=== PATIENT | female | born 1965 ===

== ENCOUNTER 2020-07-07 10:47 | Outpatient (REF) | payer OTHER, SELFPAY | END 2020-07-07 10:48 | disposition home or self-care (01) | LOC: HO.LAB 10:47 | PROVIDERS: Referring Provider Internal Medicine; Visit Provider Internal Medicine | DX: Z20.828 Contact with and (suspected) exposure to other viral communicable diseases (principal); B20 Human immunodeficiency virus [HIV] disease; R79.89 Other specified abnormal findings of blood chemistry | CPT/HCPCS: 87635; 99212 ==

== ENCOUNTER → 2020-12-29 10:41 | Outpatient (BNVA) | payer OTHER, SELFPAY | PROVIDERS: Visit Provider Internal Medicine | DX: B20 Human immunodeficiency virus [HIV] disease (principal) | CPT/HCPCS: 99212 ==

== ENCOUNTER → 2021-06-30 09:58 | Outpatient (BNVA) | payer OTHER, SELFPAY | PROVIDERS: Visit Provider Internal Medicine | DX: B20 Human immunodeficiency virus [HIV] disease (principal) | CPT/HCPCS: 99212 ==

== ENCOUNTER 2022-02-16 12:55 | Outpatient (REF) | payer OTHER, SELFPAY ==
[2022-02-16 13:39] LABS: MANUAL DIFF FLAG NO
[2022-02-16 13:42] LABS: White Blood Count 5.3 X10*3/uL (4.8-10.8)
[2022-02-16 13:43] LABS: Basophils Percent Auto 0.4 % (0-2); Eosinophils Absolute Auto 0.1 X10*3/uL (0.0-0.4); Eosinophils Percent Auto 1.5 % (0-4); Hematocrit 41.1 % (37.0-47.0); Hemoglobin 13.7 g/dl (12.0-16.0); Imm Gran Abs Auto 0.01 X10*3/uL (0.00-0.03); Imm Gran Pct Auto 0.2 % (0.0-0.4); Lymphocytes Absolute Auto 2.1 X10*3/uL (1.2-4.9); Lymphocytes Percent Auto 39.9 % (20-40); Mean Corpuscular HGB Conc 33.3 g/dl (31.0-35.0); Mean Corpuscular Hemoglobin 28.4 pg (27.0-33.0); Mean Corpuscular Volume 85.3 fL (80.0-98.0); Mean Platelet Volume 10.1 fL (9.4-12.3); Monocytes Absolute Auto 0.4 X10*3/uL (0.1-1.2); Neutrophils Absolute Auto 2.7 x10*3/uL (2.0-8.3); Platelet Count 189 X10*3/uL (160-400); Red Blood Count 4.82 X10*6/uL (4.20-5.50); Red Cell Distribution Width 13.5 % (11.0-16.0)
[2022-02-16 14:05] LABS: Alanine Aminotransferase 14 U/L (0-31); Albumin Level 4.3 g/dL (3.5-5.0); Alkaline Phosphatase 50 U/L (39-117); Anion Gap 13 (12-20); Aspartate Amino Transferase 17 U/L (5-31); Bilirubin Direct 0.2 mg/dL (0.0-0.5); Bilirubin Total 0.5 mg/dL (0.0-1.0); Blood Urea Nitrogen 16 mg/dL (9-16); Calcium 10.2 mg/dL (8.4-10.2); Carbon Dioxide 25 mmol/L (22-29); Chloride 107 mmol/L (96-108); Estimated Glomerular Filt Rate 60; Glucose Random 91 mg/dL (60-115); Potassium 3.5 mmol/L (3.3-5.1); Sodium 141 mmol/L (135-145); Total Protein 7.2 g/dL (6.5-8.0)
[2022-02-18 14:55] LABS: Absolute CD3 Count 1349 cells/uL (840-3060); Absolute CD4 Count 658 cells/uL (490-1740); Absolute CD8 Count 743 cells/uL (180-1170); Absolute Lymphocytes 2242 cells/uL (850-3900); CD4 CD8 Ratio 0.89 (0.86-5.00); Percent CD3 Cells 60 % (57-85); Percent CD4 Cells 29 % (30-61); Percent CD8 Cells 33 % (12-42)
[2022-02-19 19:16] LABS: HIV RNA PCR Qn Copies <20 DETECTED copies/mL (NOT DETECTED); HIV RNA PCR Qn Log Copies <1.30 DETECTED (NOT DETECTED)
== END 2022-02-16 12:56 | disposition home or self-care (01) ==
LOC: HO.HMGCLDS 12:55
PROVIDERS: Visit Provider Internal Medicine
DX: B20 Human immunodeficiency virus [HIV] disease (principal)
CPT/HCPCS: 36415; 80048; 80076; 85025; 86359; 86360; 87536

== ENCOUNTER → 2022-03-02 10:44 | Outpatient (BNVA) | payer OTHER, SELFPAY | PROVIDERS: Visit Provider Internal Medicine | DX: B20 Human immunodeficiency virus [HIV] disease (principal) | CPT/HCPCS: 99212 ==

== ENCOUNTER 2022-08-21 12:26 | Outpatient (REF) | payer OTHER, SELFPAY ==
[2022-08-23 15:04] LABS: Absolute CD3 Count 851 cells/uL (840-3060); Absolute CD4 Count 416 cells/uL (490-1740); Absolute CD8 Count 472 cells/uL (180-1170); Absolute Lymphocytes 1560 cells/uL (850-3900); CD4 CD8 Ratio 0.88 (0.86-5.00); Percent CD3 Cells 55 % (57-85); Percent CD4 Cells 27 % (30-61); Percent CD8 Cells 30 % (12-42)
[2022-08-24 13:58] LABS: HIV RNA PCR Qn Copies NOT DETECTED copies/mL (NOT DETECTED); HIV RNA PCR Qn Log Copies NOT DETECTED (NOT DETECTED)
== END 2022-08-21 12:27 | disposition home or self-care (01) ==
LOC: HO.HMGCLDS 12:26
PROVIDERS: PCP Internal Medicine; Visit Provider Internal Medicine
DX: B20 Human immunodeficiency virus [HIV] disease (principal)
CPT/HCPCS: 36415; 86359; 86360; 87536

== ENCOUNTER → 2022-09-01 11:09 | Outpatient (BNVA) | payer OTHER, SELFPAY | PROVIDERS: PCP Internal Medicine; Visit Provider Internal Medicine | DX: B20 Human immunodeficiency virus [HIV] disease (principal); Z79.899 Other long term (current) drug therapy | CPT/HCPCS: 99212 ==

== ENCOUNTER 2023-02-17 10:41 | Outpatient (REF) | payer OTHER, SELFPAY ==
[2023-02-17 14:31] LABS: MANUAL DIFF FLAG NO
[2023-02-17 14:43] LABS: Basophils Percent Auto 0.5 % (0-2); Eosinophils Absolute Auto 0.1 X10*3/uL (0.0-0.4); Eosinophils Percent Auto 1.8 % (0-4); Hematocrit 42.6 % (37.0-47.0); Hemoglobin 13.9 g/dl (12.0-16.0); Imm Gran Abs Auto 0.01 X10*3/uL (0.00-0.03); Imm Gran Pct Auto 0.3 % (0.0-0.4); Lymphocytes Absolute Auto 1.8 X10*3/uL (1.2-4.9); Lymphocytes Percent Auto 45.6 % (20-40); Mean Corpuscular HGB Conc 32.6 g/dl (31.0-35.0); Mean Corpuscular Hemoglobin 28.1 pg (27.0-33.0); Mean Corpuscular Volume 86.1 fL (80.0-98.0); Mean Platelet Volume 10.5 fL (9.4-12.3); Monocytes Absolute Auto 0.3 X10*3/uL (0.1-1.2); Monocytes Percent Auto 7.6 % (2-11); Neutrophils Absolute Auto 1.8 x10*3/uL (2.0-8.3); Neutrophils Percent Auto 44.2 % (45-73); Platelet Count 183 X10*3/uL (160-400); Red Blood Count 4.95 X10*6/uL (4.20-5.50); Red Cell Distribution Width 13.8 % (11.0-16.0)
[2023-02-17 15:02] LABS: Alanine Aminotransferase 13 U/L (0-31); Albumin Level 4.2 g/dL (3.5-5.0); Alkaline Phosphatase 54 U/L (39-117); Anion Gap 13 (12-20); Aspartate Amino Transferase 19 U/L (5-31); Bilirubin Direct 0.2 mg/dL (0.0-0.5); Bilirubin Total 0.8 mg/dL (0.0-1.0); Blood Urea Nitrogen 14 mg/dL (9-16); Calcium 9.9 mg/dL (8.4-10.2); Carbon Dioxide 25 mmol/L (22-29); Chloride 107 mmol/L (96-108); Estimated Glomerular Filt Rate > 60; Glucose Random 79 mg/dL (60-115); Potassium 4.1 mmol/L (3.3-5.1); Sodium 141 mmol/L (135-145); Total Protein 7.2 g/dL (6.5-8.0)
[2023-02-19 22:04] LABS: HIV RNA PCR Qn Copies <20 DETECTED copies/mL (NOT DETECTED); HIV RNA PCR Qn Log Copies <1.30 DETECTED (NOT DETECTED)
[2023-02-21 11:44] LABS: Absolute CD3 Count 1275 cells/uL (840-3060); Absolute CD4 Count 649 cells/uL (490-1740); Absolute CD8 Count 659 cells/uL (180-1170); Absolute Lymphocytes 2033 cells/uL (850-3900); CD4 CD8 Ratio 0.98 (0.86-5.00); Percent CD3 Cells 63 % (57-85); Percent CD4 Cells 32 % (30-61); Percent CD8 Cells 32 % (12-42)
== END 2023-02-17 10:42 | disposition home or self-care (01) ==
LOC: HO.HMGCLDS 10:41
PROVIDERS: Visit Provider Internal Medicine
DX: B20 Human immunodeficiency virus [HIV] disease (principal)
CPT/HCPCS: 36415; 80048; 80076; 85025; 86359; 86360; 87536

== ENCOUNTER → 2023-03-02 10:54 | Outpatient (BNVA) | payer OTHER, SELFPAY | PROVIDERS: PCP Internal Medicine; Visit Provider Internal Medicine | DX: B20 Human immunodeficiency virus [HIV] disease (principal) | CPT/HCPCS: 99212 ==

== ENCOUNTER 2023-08-20 11:56 | Outpatient (REF) | payer OTHER, SELFPAY ==
[2023-08-20 13:39] LABS: MANUAL DIFF FLAG NO
[2023-08-20 13:47] LABS: Basophils Percent Auto 0.7 % (0-2); Eosinophils Absolute Auto 0.1 X10*3/uL (0.0-0.4); Eosinophils Percent Auto 2.4 % (0-4); Hematocrit 42.9 % (37.0-47.0); Hemoglobin 14.2 g/dl (12.0-16.0); Imm Gran Abs Auto 0.01 X10*3/uL (0.00-0.03); Imm Gran Pct Auto 0.2 % (0.0-0.4); Lymphocytes Absolute Auto 1.7 X10*3/uL (1.2-4.9); Lymphocytes Percent Auto 39.8 % (20-40); Mean Corpuscular HGB Conc 33.1 g/dl (31.0-35.0); Mean Corpuscular Volume 87.7 fL (80.0-98.0); Mean Platelet Volume 10.1 fL (9.4-12.3); Monocytes Absolute Auto 0.3 X10*3/uL (0.1-1.2); Monocytes Percent Auto 7.7 % (2-11); Neutrophils Percent Auto 49.2 % (45-73); Platelet Count 177 X10*3/uL (160-400); Red Blood Count 4.89 X10*6/uL (4.20-5.50); Red Cell Distribution Width 13.3 % (11.0-16.0); White Blood Count 4.2 X10*3/uL (4.8-10.8)
[2023-08-20 13:53] LABS: Alanine Aminotransferase 12 U/L (0-31); Albumin Level 4.2 g/dL (3.5-5.0); Alkaline Phosphatase 50 U/L (39-117); Anion Gap 13 (12-20); Aspartate Amino Transferase 19 U/L (5-31); Bilirubin Direct 0.3 mg/dL (0.0-0.5); Bilirubin Total 0.7 mg/dL (0.0-1.0); Blood Urea Nitrogen 16 mg/dL (9-16); Calcium 10.2 mg/dL (8.4-10.2); Carbon Dioxide 24 mmol/L (22-29); Chloride 110 mmol/L (96-108); Estimated Glomerular Filt Rate 57; Glucose Random 89 mg/dL (60-115); Potassium 3.9 mmol/L (3.3-5.1); Sodium 143 mmol/L (135-145); Total Protein 7.3 g/dL (6.5-8.0)
[2023-08-21 09:15] LABS: ~HepC Num1 0.09 S/CO (0.00-0.79); ~Hepatitis C Antibody Nonreactive (Nonreactive)
[2023-08-22 07:13] LABS: Absolute CD3 Count 1112 cells/uL (840-3060); Absolute CD4 Count 565 cells/uL (490-1740); Absolute CD8 Count 599 cells/uL (180-1170); Absolute Lymphocytes 1720 cells/uL (850-3900); CD4 CD8 Ratio 0.94 (0.86-5.00); Percent CD3 Cells 65 % (57-85); Percent CD4 Cells 33 % (30-61); Percent CD8 Cells 35 % (12-42)
[2023-08-24 12:04] LABS: HIV RNA PCR Qn Copies 195 copies/mL (NOT DETECTED); HIV RNA PCR Qn Log Copies 2.29 (NOT DETECTED)
== END 2023-08-20 11:57 | disposition home or self-care (01) ==
LOC: HO.HMGCLDS 11:56
PROVIDERS: PCP Internal Medicine; Visit Provider Internal Medicine
DX: B20 Human immunodeficiency virus [HIV] disease (principal)
CPT/HCPCS: 36415; 80048; 80076; 85025; 86359; 86360; 86803; 87536

== ENCOUNTER 2023-09-05 11:10 | Outpatient (AMB) | payer OTHER, SELFPAY ==
[2023-09-05 11:25] VITALS: BP 127/69; PULSE 72; TEMP 37; O2SAT 97; BMI 32.4
--- NOTE | 2023-09-05 11:25 | A.OFFVIS_ITS ---
Intake Vital Signs 09/05/23 11:25 Height 4 ft 10 in Weight 155 lb BMI 32.4 BP 127/69 Blood Pressure Location Lt brachial Position Sitting Pulse 72 Pulse Source Pulse Oximeter Temp 98.6 F Temp Source Oral Pulse Oximetry (%) 97 Oxygen Delivery Method Room Air Intake Visit Reasons: F/U 6 mth lab Allergies doxycycline Allergy (Unknown, Verified 09/05/23 11:26) itchiness minocycline [MINOCYCLINE] Allergy (Unknown, Verified 09/05/23 11:26) HIVES Sulfa (Sulfonamide Antibiotics) Allergy (Unknown, Verified 09/05/23 11:26) hives sulfamethoxazole [From BACTRIM] Allergy (Unknown, Verified 09/05/23 11:26) HIVES trimethoprim [From BACTRIM] Allergy (Unknown, Verified 09/05/23 11:) HIVES BACTRIM Allergy (Unknown, Uncoded 03/02/23 11:13) HIVES DOXYCYCLINE Allergy (Unknown, Uncoded 03/02/23 11:13) ITCGINESS HPI F/U 6 mth lab HPI Details She reports perfect adherence to Odefsey. She has CD4 count 565 and viral load 195 on 08/20. She has no complaints. Recheck within week at [facility] shows viral load only 23. COUNTS INCLUDE 234 BEDS AT THE [facility] Medical History Blood creatinine increased compared with prior measurement HIV (human immunodeficiency virus infection) Family History Mother HTN (hypertension) Social History Household Members: None Housing: Apartment Alcohol intake: never Patient Tobacco Use Status: Never used Tobacco Physical Exam Vital Signs: Last Vital Signs Temp 98.6 F 09/05/23 11:25 Pulse 72 09/05/23 11:25 BP 127/69 09/05/23 11:25 Pulse Ox 97 09/05/23 11:25 Oxygen Delivery Method Room Air 09/05/23 11:25 BMI result Body Mass Index 32.4 Const General: cooperative Orientation/consciousness: patient oriented x3 HEENT Head: Yes normal to inspection Mouth: Normal oral and palatal mucosa present Eyes General: appearance normal, both eyes and all related structures Pupils: Equal, round and reactive pupils present Resp Effort & Inspection: normal respiratory effort Cardio Rate: regular rate Rhythm: regular rhythm GI Palpation (GI): Soft to palpation and nontender General: Yes no CVA tenderness Back/Spine/Pelvis Back: no CVA tenderness Skin General skin exam: no rashes or lesions noted Neuro General: patient oriented x3 Cranial nerves: Yes CN's II-XII intact bilaterally and Yes Equal, round and reactive pupils present Extrem General: Yes normal to inspection Psych Appearance: grossly normal Assessment & Plan Assessment & Plan (1) HIV (human immunodeficiency virus infection): Comment: She is doing well She reports being up to date on health care maintenance. She has no concerns. She is nearly undetectable,probably blip Code(s): B20 - Human immunodeficiency virus [HIV] disease Plan: Continue Odefsey. Would check CD4 count and viral load within six months. See in six months Orders: Orders HIV-1 RNA QN PCR Expanded 09/05/23 B20 - Human immunodeficiency virus [HIV] disease Coding Level of Care Code Est Pt Level 3 (64803) Diagnoses HIV (human immunodeficiency virus infection) B20
== END 2023-09-05 13:48 | disposition home or self-care (01) ==
PROVIDERS: PCP Internal Medicine; Visit Provider Internal Medicine
DX: B20 Human immunodeficiency virus [HIV] disease (principal)
CPT/HCPCS: 99213

== ENCOUNTER → 2023-09-05 11:10 | Outpatient (BNVA) | payer OTHER, SELFPAY | PROVIDERS: PCP Internal Medicine; Visit Provider Internal Medicine | DX: B20 Human immunodeficiency virus [HIV] disease (principal) | CPT/HCPCS: 99212 ==

== ENCOUNTER 2024-02-18 13:19 | Outpatient (REF) | payer OTHER, SELFPAY ==
[2024-02-18 15:15] LABS: MANUAL DIFF FLAG NO
[2024-02-18 15:16] LABS: Basophils Percent Auto 0.7 % (0-2); Eosinophils Absolute Auto 0.2 X10*3/uL (0.0-0.4); Eosinophils Percent Auto 3.3 % (0-4); Hematocrit 42.1 % (37.0-47.0); Hemoglobin 14.1 g/dl (12.0-16.0); Lymphocytes Percent Auto 44.2 % (20-40); Mean Corpuscular HGB Conc 33.5 g/dl (31.0-35.0); Mean Corpuscular Hemoglobin 28.8 pg (27.0-33.0); Mean Corpuscular Volume 86.1 fL (80.0-98.0); Monocytes Absolute Auto 0.4 X10*3/uL (0.1-1.2); Monocytes Percent Auto 8.8 % (2-11); Neutrophils Absolute Auto 1.9 x10*3/uL (2.0-8.3); Platelet Count 181 X10*3/uL (160-400); Red Blood Count 4.89 X10*6/uL (4.20-5.50); Red Cell Distribution Width 13.7 % (11.0-16.0); White Blood Count 4.5 X10*3/uL (4.8-10.8)
[2024-02-18 15:33] LABS: Alanine Aminotransferase 11 U/L (0-31); Albumin Level 4.2 g/dL (3.5-5.0); Alkaline Phosphatase 53 U/L (39-117); Anion Gap 14 (12-20); Aspartate Amino Transferase 18 U/L (5-31); Bilirubin Direct 0.2 mg/dL (0.0-0.5); Bilirubin Total 0.7 mg/dL (0.0-1.0); Blood Urea Nitrogen 13 mg/dL (9-16); Calcium 9.8 mg/dL (8.4-10.2); Carbon Dioxide 24 mmol/L (22-29); Chloride 108 mmol/L (96-108); Estimated Glomerular Filt Rate > 60; Glucose Random 80 mg/dL (60-115); Potassium 4.1 mmol/L (3.3-5.1); Sodium 142 mmol/L (135-145); Total Protein 7.2 g/dL (6.5-8.0)
[2024-02-21 11:03] LABS: Absolute CD3 Count 1430 cells/uL (840-3060); Absolute CD4 Count 727 cells/uL (490-1740); Absolute CD8 Count 756 cells/uL (180-1170); Absolute Lymphocytes 2204 cells/uL (850-3900); CD4 CD8 Ratio 0.96 (0.86-5.00); HIV RNA PCR Qn Copies 66 copies/mL (NOT DETECTED); HIV RNA PCR Qn Log Copies 1.82 (NOT DETECTED); Percent CD3 Cells 65 % (57-85); Percent CD4 Cells 33 % (30-61); Percent CD8 Cells 34 % (12-42)
== END 2024-02-18 13:20 | disposition home or self-care (01) ==
LOC: HO.HMGCLDS 13:19
PROVIDERS: Visit Provider Internal Medicine
DX: B20 Human immunodeficiency virus [HIV] disease (principal)
CPT/HCPCS: 36415; 80048; 80076; 85025; 86359; 86360; 87536

== ENCOUNTER 2024-02-29 11:02 | Outpatient (REF) | payer OTHER, SELFPAY ==
[2024-03-02 09:38] LABS: HIV RNA PCR Qn Copies <20 DETECTED copies/mL (NOT DETECTED); HIV RNA PCR Qn Log Copies <1.30 DETECTED (NOT DETECTED)
== END 2024-02-29 11:03 | disposition home or self-care (01) ==
LOC: HO.LAB 11:02
PROVIDERS: PCP Internal Medicine; Visit Provider Internal Medicine
DX: B20 Human immunodeficiency virus [HIV] disease (principal)
CPT/HCPCS: 36415; 87536

== ENCOUNTER 2024-02-29 11:02 | Outpatient (AMB) | payer OTHER, SELFPAY ==
--- NOTE | 2024-02-29 11:12 | MHC.OFFVIS ---
Vital Signs 02/29/24 11:13 Height 4 ft 10 in Weight 156 lb BMI 32.6 BP 129/82 Blood Pressure Location Rt brachial Position Sitting Pulse 85 Pulse Source Pulse Oximeter Temp 98.9 F Temp Source Oral Pulse Oximetry (%) 100 Oxygen Delivery Method Room Air Intake Visit Reasons: hiv 6 month f/u Allergies doxycycline Allergy (Unknown, Verified 02/29/24 11:14) itchiness minocycline [MINOCYCLINE] Allergy (Unknown, Verified 02/29/24 11:14) HIVES Sulfa (Sulfonamide Antibiotics) Allergy (Unknown, Verified 02/29/24 11:14) hives sulfamethoxazole [From BACTRIM] Allergy (Unknown, Verified 02/29/24 11:14) HIVES trimethoprim [From BACTRIM] Allergy (Unknown, Verified 02/29/24 11:14) HIVES BACTRIM Allergy (Unknown, Uncoded 02/29/24 11:14) HIVES DOXYCYCLINE Allergy (Unknown, Uncoded 02/29/24 11:14) ITCGINESS [facility] Medical History Blood creatinine increased compared with prior measurement HIV (human immunodeficiency virus infection) Family History Mother HTN (hypertension) Social History Household Members: None Housing: Apartment Alcohol intake: never Patient Tobacco Use Status: Never used Tobacco Physical Exam Vital Signs: Last Vital Signs Temp 98.9 F 02/29/24 11:13 Pulse 85 02/29/24 11:13 BP 129/82 02/29/24 11:13 Pulse Ox 100 02/29/24 11:13 Oxygen Delivery Method Room Air 02/29/24 11:13 BMI result Body Mass Index 32.6 Assessment & Plan Assessment & Plan (1) HIV (human immunodeficiency virus infection): Comment: She is doing well She reports being up to date on health care maintenance. She has no concerns. She is nearly undetectable,probably blip Code(s): B20 - Human immunodeficiency virus [HIV] disease Category: Medical Plan: N/A Orders: Orders HIV 1 Resistance Proviral DNA 02/29/24 B20 - Human immunodeficiency virus [HIV] disease Coding Level of Care Code Est Pt Level 3 (98608) Diagnoses HIV (human immunodeficiency virus infection) B20
[2024-02-29 11:13] VITALS: BP 129/82; PULSE 85; TEMP 37.2; O2SAT 100; BMI 32.6
== END 2024-02-29 11:57 | disposition home or self-care (01) ==
PROVIDERS: PCP Internal Medicine; Visit Provider Internal Medicine
DX: B20 Human immunodeficiency virus [HIV] disease (principal)
CPT/HCPCS: 99499

== ENCOUNTER 2024-08-28 09:24 | Outpatient (REF) | payer OTHER, SELFPAY ==
[2024-08-28 13:02] LABS: MANUAL DIFF FLAG NO
[2024-08-28 13:11] LABS: Basophils Percent Auto 0.4 % (0-2); Eosinophils Absolute Auto 0.1 X10*3/uL (0.0-0.4); Hematocrit 41.2 % (37.0-47.0); Hemoglobin 13.4 g/dl (12.0-16.0); Imm Gran Abs Auto 0.01 X10*3/uL (0.00-0.03); Imm Gran Pct Auto 0.2 % (0.0-0.4); Lymphocytes Percent Auto 43.5 % (20-40); Mean Corpuscular HGB Conc 32.5 g/dl (31.0-35.0); Mean Corpuscular Hemoglobin 28.5 pg (27.0-33.0); Mean Corpuscular Volume 87.7 fL (80.0-98.0); Mean Platelet Volume 10.3 fL (9.4-12.3); Monocytes Absolute Auto 0.5 X10*3/uL (0.1-1.2); Monocytes Percent Auto 10.8 % (2-11); Neutrophils Percent Auto 43.1 % (45-73); Platelet Count 178 X10*3/uL (160-400); Red Cell Distribution Width 13.7 % (11.0-16.0); White Blood Count 4.6 X10*3/uL (4.8-10.8)
[2024-08-28 13:20] LABS: Alanine Aminotransferase 18 U/L (0-31); Albumin Level 4.2 g/dL (3.5-5.0); Alkaline Phosphatase 47 U/L (39-117); Anion Gap 13 (12-20); Aspartate Amino Transferase 27 U/L (5-31); Bilirubin Direct 0.2 mg/dL (0.0-0.5); Bilirubin Total 0.6 mg/dL (0.0-1.0); Blood Urea Nitrogen 18 mg/dL (9-16); Calcium 9.4 mg/dL (8.4-10.2); Carbon Dioxide 27 mmol/L (22-29); Chloride 105 mmol/L (96-108); Estimated Glomerular Filt Rate > 60; Glucose Random 85 mg/dL (60-115); Potassium 4.4 mmol/L (3.3-5.1); Sodium 141 mmol/L (135-145); Total Protein 7.4 g/dL (6.5-8.0)
[2024-08-29 08:29] LABS: ~Hepatitis C Antibody Nonreactive (Nonreactive)
[2024-08-31 18:53] LABS: Absolute CD3 Count 1378 cells/uL (840-3060); Absolute CD4 Count 665 cells/uL (490-1740); Absolute CD8 Count 772 cells/uL (180-1170); Absolute Lymphocytes 2015 cells/uL (850-3900); CD4 CD8 Ratio 0.86 (0.86-5.00); Percent CD3 Cells 68 % (57-85); Percent CD4 Cells 33 % (30-61); Percent CD8 Cells 38 % (12-42)
[2024-08-31 19:14] LABS: HIV RNA PCR Qn Copies NOT DETECTED copies/mL (NOT DETECTED); HIV RNA PCR Qn Log Copies NOT DETECTED (NOT DETECTED)
== END 2024-08-28 09:25 | disposition home or self-care (01) ==
LOC: HO.HMGCLDS 09:24
PROVIDERS: PCP Internal Medicine; Visit Provider Internal Medicine
DX: B20 Human immunodeficiency virus [HIV] disease (principal)
CPT/HCPCS: 36415; 80048; 80076; 85025; 86359; 86360; 86803; 87536

== ENCOUNTER 2024-09-05 13:04 | Outpatient (AMB) | payer OTHER, SELFPAY ==
--- NOTE | 2024-09-05 13:14 | A.OFFVIS_ITS ---
Vital Signs 09/05/24 13:19 Height 4 ft 10 in Weight 160 lb BMI 33.4 Pulse 102 H Pulse Source Pulse Oximeter Intake Visit Reasons: 6 month hiv labs Allergies doxycycline Allergy (Unknown, Verified 09/05/24 13:20) itchiness minocycline [MINOCYCLINE] Allergy (Unknown, Verified 09/05/24 13:20) HIVES Sulfa (Sulfonamide Antibiotics) Allergy (Unknown, Verified 09/05/24 13:20) hives sulfamethoxazole [From BACTRIM] Allergy (Unknown, Verified 09/05/24 13:20) HIVES trimethoprim [From BACTRIM] Allergy (Unknown, Verified 09/05/24 13:20) HIVES BACTRIM Allergy (Unknown, Uncoded 02/29/24 11:14) HIVES DOXYCYCLINE Allergy (Unknown, Uncoded 02/29/24 11:14) ITCGINESS HPI HPI 6 month hiv labs: Details: She has CD4 count 665 and viral load undetectable on 08/28. She has no complaints and is UTD on healthcare maintenance. [facility] Medical History Blood creatinine increased compared with prior measurement HIV (human immunodeficiency virus infection) Family History Mother HTN (hypertension) Social History Household Members: None Housing: Apartment Alcohol intake: never Patient Tobacco Use Status: Never used Tobacco Physical Exam Vital Signs: Last Vital Signs Pulse 102 H 09/05/24 13:19 BMI result Body Mass Index 33.4 Const General: cooperative Orientation/consciousness: patient oriented x3 HEENT Head: Yes normal to inspection Mouth: Normal oral and palatal mucosa present Eyes General: appearance normal, both eyes and all related structures Pupils: Equal, round and reactive pupils present Resp Effort & Inspection: normal respiratory effort Cardio Rate: regular rate Rhythm: regular rhythm GI Palpation (GI): Soft to palpation and nontender General: Yes no CVA tenderness Back/Spine/Pelvis Back: no CVA tenderness Skin General skin exam: no rashes or lesions noted Neuro General: patient oriented x3 Cranial nerves: Yes CN's II-XII intact bilaterally and Yes Equal, round and reactive pupils present Extrem General: Yes normal to inspection Psych Appearance: grossly normal Assessment & Plan Assessment & Plan (1) HIV (human immunodeficiency virus infection): Comment: She is doing well She reports being up to date on health care maintenance. She has no concerns. She is viral load undetectable Code(s): B20 - Human immunodeficiency virus [HIV] disease Category: Medical Plan: Continue Odeftrixie See in six months with labs before Orders: Orders HIV-1 RNA QN PCR Expanded 6 Months B20 - Human immunodeficiency virus [HIV] disease Lymphocyte Subset Panel 3 6 Months B20 - Human immunodeficiency virus [HIV] disease Basic Metabolic Panel 6 Months B20 - Human immunodeficiency virus [HIV] disease Medications: Refilled [id number] ala 200-25-25 mg (Esvin) must administer with a meal/food 1 tab PO DAILY 90 days 90 tabs 1RF Coding Level of Care Code Est Pt Level 4 (88348) Diagnoses HIV (human immunodeficiency virus infection) B20
[2024-09-05 13:19] VITALS: PULSE 102; BMI 33.4
== END 2024-09-05 14:14 | disposition home or self-care (01) ==
PROVIDERS: PCP Internal Medicine; Visit Provider Internal Medicine
DX: B20 Human immunodeficiency virus [HIV] disease (principal)
CPT/HCPCS: 99214

== ENCOUNTER → 2024-09-05 13:04 | Outpatient (BNVA) | payer OTHER, SELFPAY | PROVIDERS: PCP Internal Medicine; Visit Provider Internal Medicine | DX: B20 Human immunodeficiency virus [HIV] disease (principal) | CPT/HCPCS: 99212 ==

== ENCOUNTER 2025-02-15 10:06 | Outpatient (REF) | payer OTHER, SELFPAY ==
--- OUTSIDE RECORDS SUMMARY | 2025-02-15 10:40 | XMS_ITS | Clinical Summary ---
Author Organization [facility] [address] [place] [address] [place] [address] Phone Care Team Providers Care Sand Screener Operator Name Role Phone Vivian Xavier MD Primary Care Provider [phone] Allergies Active Allergy Reactions Criticality Noted Date Comments Minocycline Hcl 01/08/2008 Other Reaction(s): Hives/Urticaria Sulfamethoxazole-Trimethopri m 08/24/2006 Other Reaction(s): Hives/Urticaria Medications multivit-min/iro n/FA/vit K/lut ([employer]UM [employer]OM[employer] ORAL) Take by mouth. Active Active Problems Problem Noted Date Diagnosed Date Ascending aorta dilation (CMS/HCC V24) 5 Overview (01/07/2025): 3.8 cm COVID-19 09/05/2024 PMB (postmenopausal bleeding) 12/18/2020 Overview (09/05/2024): 11/2020 Pt is schf or ultrasund and EMB Obesity (BMI 30.0-34.9) 04/16/2019 Rosacea 01/07/2012 Disorder of kidney and ureter 08/24/2006 Overview (09/05/2024): IMO update External hemorrhoids 08/24/2006 Overview (09/05/2024): IMO [id number] update Human immunodeficiency virus (HIV) disease ([facility] V24, [facility] V28) 08/24/2006 Pneumocystosis ([facility] V24, [facility] V28) 2005 Encounters Date Type Department Care Team Description 12/12/2024 9:30 AM EDT Ancillary Procedure [facility] [address] [place] [address] Heart murmur from Last 3 Months Immunizations Name Administration Dates Next Due Influenza Quadravalent, MDCK , 0.5ml, preservative free (Flucelvax) 6mo and older 07/15/2021 Influenza Quadravalent, MDCK , 0.5ml, with preservative (Flucelvax) 6mo and older 06/07/2018,06/26/2017 Influenza trivalent, 0.5mL, preservative free (Fluarix; FluLaval; Fluzone) ages 6mo and older (Afluria) 3 years and older 06/18/2024,07/02/2020,07/22/2016,2014,06/30/2014,06/14/2013,07/20/2007,1 10/25/2005,08/20/2005 Influenza, Unspecified 07/09/2019 PPD Test 12/20/2018, 7,01/28/2015,2011,04/21/2005 Pneumococcal conjugate 13 va lent (Prevnar 13, PCV13) 2mo and older 04/13/2016 Td Tetanus diptheria (Tdvax) 7yo and older 10/07/2006 Tdap Tetanus diptheria acell ular pertussis (Boostrix; Adacel) 7yo and older 06/18/2024,06/14/2013 Surgical History Surgery Date Site/Laterality Comments TUBAL LIGATION 2001 PROCEDURE: HISTORICAL TUBAL LIGATION SECTION 1997 PROCEDURE: HISTORICAL DELIVERY Medical History Medical History Date Comments Human immunodeficiency virus (HIV) disease ([facility] V24, [facility] V28) 08/24/2006 DX:Human immunodefi ciency virus (HIV) disease ([facility]) Unspecified disorder of kidn ey and ureter 08/24/2006 DX:Unspecified disorder of k idney and ureter Pneumocystosis ([facility] V24, [facility] 08/24/2006 DX:Pneumocystosis ([facility]) Endometriosis DX:Endometriosis Covid-19 02/2020 DX:COVID-19 History of peritoneal dialysis D X:History of peritoneal dialysis Family History Medical History Relation Name Comments Breast cancer Aunt m 60s maternal side- 70s Diabetes Brother 1 Hypertension Brother 1 Colon cancer Brother 2 Diabetes Father Hypertension Father Dementia Mother Hypertension Mother Other: diabetes Mother Diabetes Sister Osteoporosis Sister Ovarian cancer Neg Hx Uterine cancer Neg Hx Relation Name Status Comments Aunt m 60s Alive Brother 1 Alive Brother 2 Alive Father Mother Alive Sister Alive Social History Tobacco Use Types Packs/Day Years Used Date Smoking Tobacco: Never Smokeless Tobacco: Never Tobacco Cessation:Counseling Given: Not Answered Alcohol Use Standard Drinks/Week Comments Not Currently 0 (1 standard drink = 0.6 oz pur e alcohol) Comments No Sex and Gender Information Value Date Recorded Sex Assigned at Not on file Legal Sex Female 11:38 AM EST Gender Identity Not on file Sexual Orientation Not on file Obstetrics History Para Term AB IAB SAB Ectopic Multiple Livin g Live Births 1 1 1 1 Date Outcome GA Total Labor Labor/2nd/3rd Weight Sex Type Anes PTL Rashmi A1 A5 Name Clin Term Last Filed Vital Signs Vital Sign Reading Time Taken Comments Blood Pressure 120/81 12/12/2024 1:55 PM EDT Pulse 80 11/07/2024 12:58 PM EST Temperature 36 ??C (96.8 ??F) 11/07/2024 12:58 PM EST Respiratory Rate 14 11/07/2024 12:58 PM EST Oxygen Saturation - - Inhaled Oxygen Concentration - - Weight 71.7 kg (158 lb) 12/12/2024 1:55 PM EDT Height 147.3 cm (4' 10 ) 12/12/2024 1:55 PM EDT Body Mass Index 33.02 12/12/2024 1:55 PM EDT Plan of Treatment Health Maintenance Due Date Last Done Comments Meningococcal ACWY Vaccine (1 - Risk 2-dose series) 1968 MMR Vaccines (1 of 2 - Risk 2-dose series) 1984 Hepatitis A Vaccines (1 of 2 - Risk 2-dose series) 1985 Hepatitis B Vaccines (1 of 3 - 19+ 3-dose series) 1985 Zoster Vaccines (1 of 2) 1985 Pneumococcal Vaccine: 50+ Years (2 of 2 - PPSV23) 06/08/2016 04/13/2016 Pneumococcal Vaccine: Pediatrics (0 to 5 Years) and At-Risk Patients (6 to 64 Years) (2 of 2 - PPSV23) 06/08/2016 04/13/2016 COVID-19 Vaccine (3 - Moderna risk series) 03/10/2021 02/10/2021, 01/13/2021 Depression Screening 08/28/2022 Social Influencers of Health Screening 08/28/2022 Breast Cancer Screening 09/20/2026 09/20/19, 2023, 09/07/2022, Additional history exists Cervical Cancer Screening: HPV 06/09/2028 06/09/2023 Colorectal Cancer Screening: Colonoscopy 11/09/2028 11/09/2018 Cholesterol Screening (Lipid Panel) 06/22/2029 06/22/2024, 06/22/2024 DTaP,Tdap,and Td Vaccines (4 - Td or Tdap) 06/18/2034 06/18/2024, 06/14/2013, 10/07/2006 Hepatitis C Screening Completed 06/09/2023 Influenza Vaccine Completed 06/18/2024, , 07/21/2022, Additional history exists HIB Vaccines Aged Out No longer eligi ble based on patient's age to complete this topic HPV Vaccines Aged Out No longer eligi ble based on patient's age to complete this topic IPV Vaccines Aged Out No longer eligi ble based on patient's age to complete this topic Meningococcal B Vaccine Aged Out No l onger eligible based on patient's age to complete this topic RSV Immunization Patients Under 20 months Aged Out No longer eligible based on patient's age to complete this topic Varicella Vaccines Aged Out No longer eligible based on patient's age to complete this topic Procedures Procedure Name Priority Date/Time Associated Diagnosis Comments TRANSTHORACIC ECHOCARDIOGRAM (TTE) COMPLETE Routine 12/12/2024 10:10 AM EDT Heart murmur MG MAMMO DIGITAL SCREENING W CARLOS ENRIQUE BILAT Routine 09/20/2024 1:14 PM EST Encounter for screening mammogram for breast cancer LIPID PANEL Routine 06/22/2024 HM HPV Routine 06/09/2023 HEPATITIS C SCREENING Routine 06/09/2023 HM COLONOSCOPY Routine 11/09/2018 from Last 3 Months or Most Recently Relevant to Health Maintenance Results * (ABNORMAL) TRANSTHORACIC ECHOCARDIOGRAM (TTE) COMPLETE (12/12/2024 10:10 AM EDT) Left Atrium Minor [place] 5.8 cm CV PACS Left Atrium Major [place] 5.5 cm CV PACS LA Area Sys (A2C) 18 cm2 CV PACS LA Area Sys (A4C) 19 cm2 CV PACS LA Volume (BP) 50 mL CV PACS LA Size 3.1 cm CV PACS RA Area 13.0 cm2 CV PACS RA 2D Volume 28 mL CV PACS AV Regurgitation PHT 589 ms CV PACS AR Max Velocity 4.5 m/s CV PACS AV Peak Raymundo 1.8 m/s CV PACS AV Peak Gradient 12 mmHg CV PACS AV Mean Gradient 5 mmHg CV PACS Ao VTI 38.7 cm CV PACS AV Area Peak Velocity 1.8 cm2 CV PACS Aortic Arch 2.7 cm CV PACS Ascending Aorta 3.8 cm CV PACS Aortic Sinus Valsalva 2.9 cm CV PACS IVC Proximal 2.0 cm CV PACS IVSD 1.1(A) 0.6 - 0.9 cm CV PACS LVIDD 4.3 3.8 - 5.2 cm CV PACS LVIDS 2.9 2.2 - 3.5 cm CV PACS LVOT Diameter 1.9 cm CV PACS LVOT Mean [place] 0.9 m/s CV PACS LVOT Mean Grad 3 mmHg CV PACS LVOT Peak VTI 30.4 cm CV PACS LVOT Peak [place] 1.4 m/s CV PACS LVOT Peak Gradient 8 mmHg CV PACS LVPWD 1.1(A) 0.6 - 0.9 cm CV PACS MV E' Tissue Velocity Lateral 12 cm/s CV PACS MV E' Tissue Velocity Septal 9 cm/s CV PACS LVOT Area 2.8 cm2 CV PACS LVOT Stroke Volume 84 mL CV PACS MV Deceleration [place] 4.5 m/s2 CV PACS E Wave Deceleration Time 208 119 - 242 ms CV PACS MV PHT 60 ms CV PACS MV Peak A [place] 0.60 m/s CV PACS MV Peak E [place] 0.80 m/s CV PACS MV Mean Gradient 1 mmHg CV PACS MV VTI 24.4 cm CV PACS Mitral Valve Max Velocity 0.9 m/s CV PACS MV Peak Gradient 4 mmHg CV PACS MV Area PHT 3.9 cm2 CV PACS MV Area Continuity Equation 3.4 cm2 CV PACS PV Acceleration Time 148 ms CV PACS PV Mean Gradient 1 mmHg CV PACS PV VTI 21.2 cm CV PACS PV Peak Velocity 0.9 m/s CV PACS PV Peak Gradient 3 mmHg CV PACS RV Diastolic Basal Dimension 3.7 2.5 - 4.1 cm CV PACS RV S' 12 cm/s CV PACS TAPSE 25 mm CV PACS TR Peak Velocity 2.50 m/s CV PACS TR Peak Gradient 24 mmHg CV PACS E/E' Ratio Septal 9 CV PACS E/E' Ratio Averaged 8 CV PACS Relative Wall Thickness ratio 0.53(A) 0.22 - 0.42 CV PACS FS 33 % CV PACS LV Mass 2D 173(A) 66 - 150 g CV PACS MV VTI:LVOT VTI ratio 0.8 CV PACS LVOT flow 255 mL/s CV PACS AV Velocity Ratio 0.80 CV PACS E/A Ratio 1.3 0.8 - 2.0 CV PACS E/E' Ratio Lateral 7 CV PACS BSA 1.71 m2 CV PACS LA Volume Index (BP) 29 mL/m2 CV PACS LVIDD Index 2.61 cm/m2 CV PACS LVIDS Index 1.76 cm/m2 CV PACS LV Mass Index 2D 99(A) 44 - 88 g/m2 CV PACS LVOT Stroke Index 0 mL/m2 CV PACS LA Dimension Index 2D 1.8 cm/m2 CV PACS RA 2D Volume Index 17 15 - 27 mL/m2 CV PACS ARIE Index (Pk Raymundo) 1.09 cm2/m2 CV PACS Ascending Aorta Index 2.30 cm/m2 CV PACS Right Ventricular Peak Systolic Pressure 28 mmHg CV PACS Est. RA Pressure 3 mmHg CV PACS RV Free Wall Peak S' 12 cm/s CV PACS RA Major [place] 4.7 cm CV PACS RA Major [place] Index 2.8 2.2 - 2.8 cm/m2 CV PACS LVOT:AV VTI Index 0.79 CV PACS AV Area 2D 2.2 cm2 CV PACS ARIE Index (2D) 1.33 cm2/m2 CV PACS AV Area Continuity Equation 2.2 cm2 CV PACS ARIE Index (VTI) 1.35 cm2/m2 CV PACS Inferior Vena Cava Diameter At Expiration 2.0 cm CV PACS IVC Expiration Index 1.21 cm/m2 CV PACS AV Area Index 1.3 CV PACS Anatomical Region Laterality Modality Ultrasound Narrative 01/04/2025 10:13 AM EDT ?Left ventricle cavity size is normal. ??There is mild, concentric left ventricular hypertrophy. ??There is normal left ventricular regional wall motion. ??Left ventricular systolic function is in the normal range with an ejection fraction of 60-65%. ?There is upper normal right ventricular size with normal systolic function. ?There is no hemodynamically significant valve disease. ??Mild valvular abnormalities as above. ?There is normal left ventricular diastolic function. ??There is normal pulmonary artery systolic pressure. ?The ascending aorta is mildly dilated for age and body surface area at 3.8 cm. ??The aortic root is normal in size. Left Ventricle Left ventricle cavity size is normal. There is mild concentric hypertrophy. Systolic function is normal with an ejection fraction of 60-65%. There are no regional LV wall motion abnormalities. There is no diastolic dysfunction and normal left atrial pressure. Right Ventricle The right ventricle is upper normal in size. Systolic function is normal. Left Atrium Left atrium cavity size is normal. Right Atrium Right atrium cavity is normal. IVC/SVC Inferior vena cava structure is normal. RA pressures is estimated to be 3 mmHg (IVC diameter <21 mm and decreases >50% during inspiration). Mitral Valve The leaflets are mildly thickened. There is mild annular calcification. There is trace regurgitation. There is no evidence of mitral valve stenosis. Tricuspid Valve Tricuspid valve structure is normal. There is trace regurgitation. There is no evidence of tricuspid valve stenosis. The right ventricular systolic pressure is normal. The RVSP is estimated at 28 mmHg. Aortic Valve The aortic valve is trileaflet. The leaflets exhibit normal excursion. There is mild regurgitation with a centrally directed jet. There is no evidence of aortic valve stenosis. Pulmonic Valve There is no regurgitation or stenosis. Ascending Aorta The ascending aorta is minimally dilated (3.8 cm) for age and body surface area. The aortic root is normal in size. Pericardium Pericardium appears normal. There is no pericardial effusion. Study Details Overall the study quality was adequate. us Candie SOLANO CV ECHO PROCEDURES Final Resul t * MG Mammo Digital Screening w Carlos Enrique bilat (09/20/2024 1:14 PM EST) Anatomical Region Laterality Modality Breast Bilateral Mammography 09/21/2024 9:07 AM EST Impressions 09/21/2024 9:19 AM EST 1. No mammographic evidence of malignancy 2. Scattered fibroglandular tissue BI-RADS CATEGORY: 2 - BENIGN RECOMMENDATION: Screening bilateral mammogram is recommended in 1 year. Mammo Location: [facility], [address] [place] [address], [facility], . -------- FINAL REPORT -------- Dictated By: Kayley Eid Dictated Date: 09/21/2024 09:07 ET Assigned Physician: Kayley Eid Reviewed and Electronically Signed By: Kayley Eid Signed Date: 09/21/2024 09:19 ET Workstation ID: [id number] Transcribed By: Self Edit Transcribed Date: 09/21/2024 09:07 ET Narrative 09/21/2024 9:19 AM EST A BILATERAL DIGITAL 3D SCREENING MAMMOGRAPHY HISTORY: Routine screening. ??Family history of breast cancer in aunt COMPARISON: Multiple priors dating back to 08/21/2020 Technique: Bilateral full field digital mammography (3D) was performed using standard CC and MLO projections CAD ??was used to evaluate this mammogram. FINDINGS: Right: No suspicious masses, groups of microcalcification or areas of architectural distortion identified. Stable typically benign parenchymal asymmetries. Left: No suspicious masses, groups of microcalcification or areas of architectural distortion identified. Stable typically benign parenchymal asymmetries. BREAST DENSITY: B - There are scattered areas of fibroglandular density. Procedure Note Kayley Eid MD - 09/21/2024 A BILATERAL DIGITAL 3D SCREENING MAMMOGRAPHY HISTORY: Routine screening. Family history of breast cancer in aunt COMPARISON: Multiple priors dating back to 08/21/2020 Technique: Bilateral full field digital mammography (3D) was performedusing standard CC and MLO projections CAD was used to evaluate this mammogram. FINDINGS: Right: No suspicious masses, groups of microcalcification or areas ofarchitectural distortion identified. Stable typically benign parenchymalasymmetries. Left: No suspicious masses, groups of microcalcification or areas ofarchitectural distortion identified. Stable typically benign parenchymalasymmetries. BREAST DENSITY: B - There are scattered areas of fibroglandular density. IMPRESSION: 1. No mammographic evidence of malignancy 2. Scattered fibroglandular tissue BI-RADS CATEGORY: 2 - BENIGN RECOMMENDATION: Screening bilateral mammogram is recommended in 1 year. Mammo Location: [facility], [address] [place] [address], [id number], . -------- FINAL REPORT -------- Dictated By: Kayley Eid Dictated Date: 09/21/2024 09:07 ET Assigned Physician: Kayley Eid Reviewed and Electronically Signed By: Kayley Eid Signed Date: 09/21/2024 09:19 ET Workstation ID: [id number] Transcribed By: Self Edit Transcribed Date: 09/21/2024 09:07 ET us Vivian Xavier MD [facility] BI PROCEDURES Final Result * Lipid panel (06/22/2024) LDL/HDL Ratio 2 0 - 4 Triglycerides 62 0 - 150 mg/dL Cholesterol 185 0 - 200 mg/dL HDL 80 >=40 mg/dL LDL Cholesterol 93 0 - 100 mg/dL Blood Venous blood specimen / Unknown Historical Provider LAB BLOOD ORDERABLES Cate l Result * Cervical Cancer Screening: HPV (06/09/2023) Pathologist [facility] Cervical Cancer Screening: HPV negative, abstracted Historical Provider HEALTH MAINTENANCE Final Result * Hepatitis C Screening (06/09/2023) Pathologist [facility] Hepatitis C Screening abstracted Historical Provider HEALTH MAINTENANCE Final Result * Colonoscopy (11/09/2018) Pathologist [facility] Colonoscopy no interpretation , abstracted Anatomical Region Laterality Modality Other Historical Provider HEALTH MAINTENANCE Final Result from Last 3 Months or Most Recently Relevant to Health Maintenance [place] [address] [address] [place] [address] PLAN Care Teams Sand Screener Operator Relationship Specialty Start Date End Date Vivian Xavier MD [address] [place] [id number] PCP - General 09/29/22
[2025-02-15 14:12] LABS: Anion Gap 9 (12-20); Blood Urea Nitrogen 17 mg/dL (9-16); Calcium 9.8 mg/dL (8.4-10.2); Carbon Dioxide 27 mmol/L (22-29); Chloride 107 mmol/L (96-108); Estimated Glomerular Filt Rate > 60; Glucose Random 85 mg/dL (60-115); Potassium 4.3 mmol/L (3.3-5.1); Sodium 139 mmol/L (135-145)
[2025-02-16 14:49] LABS: HIV RNA PCR Qn Copies 63 copies/mL (NOT DETECTED)
[2025-02-19 16:09] LABS: Absolute CD3 Count 1196 cells/uL (840-3060); Absolute CD4 Count 566 cells/uL (490-1740); Absolute CD8 Count 673 cells/uL (180-1170); Absolute Lymphocytes 1732 cells/uL (850-3900); CD4 CD8 Ratio 0.84 (0.86-5.00); Percent CD3 Cells 69 % (57-85); Percent CD4 Cells 33 % (30-61); Percent CD8 Cells 39 % (12-42)
== END 2025-02-15 10:07 | disposition home or self-care (01) ==
LOC: HO.HMGCLDS 10:06
PROVIDERS: PCP Internal Medicine; Visit Provider Internal Medicine
DX: B20 Human immunodeficiency virus [HIV] disease (principal)
CPT/HCPCS: 36415; 80048; 86359; 86360; 87536

== ENCOUNTER 2025-02-25 13:53 | Outpatient (AMB) | payer OTHER, SELFPAY ==
--- NOTE | 2025-02-25 13:58 | MHC.OFFVIS ---
Vital Signs 02/25/25 13:59 Pulse 107 H Pulse Source Pulse Oximeter Pulse Oximetry (%) 99 Oxygen Delivery Method Room Air Intake Visit Reasons: hiv 6 month check Allergies doxycycline Allergy (Unknown, Verified 02/25/25 13:59) itchiness minocycline [MINOCYCLINE] Allergy (Unknown, Verified 02/25/25 13:59) HIVES Sulfa (Sulfonamide Antibiotics) Allergy (Unknown, Verified 02/25/25 13:59) hives sulfamethoxazole [From BACTRIM] Allergy (Unknown, Verified 02/25/25 13:59) HIVES trimethoprim [From BACTRIM] Allergy (Unknown, Verified 02/25/25 13:59) HIVES BACTRIM Allergy (Unknown, Uncoded 02/29/24 11:14) HIVES DOXYCYCLINE Allergy (Unknown, Uncoded 02/29/24 11:14) ITCGINESS HPI HPI hiv 6 month check: Details: She is doing well with Odefsey (rilpivirine,tenofovir alafenamide and emtricitabine) but is getting tired of taking it daily ,especially since it is her only medicine. She forgot to take recently for the first time she says. She has viral load of 63 and CD4 count of 566. She needs surgery for glaucoma she says. Her granddaughter graduated from high school and is going to nursing school. She is UTD HCM mammogram,vacuum truck driver visit. [facility] Medical History Bone disorder Blood creatinine increased compared with prior measurement HIV (human immunodeficiency virus infection) Family History Mother HTN (hypertension) Social History Household Members: None Housing: Apartment Alcohol intake: never Patient Tobacco Use Status: Never used Tobacco Review of Systems Const All systems reviewed & are unremarkable except as noted in HPI and below Physical Exam Vital Signs: Last Vital Signs Pulse 107 H 02/25/25 13:59 Pulse Ox 99 02/25/25 13:59 Oxygen Delivery Method Room Air 02/25/25 13:59 Cardio Other: 09/24 EARLE Assessment & Plan Assessment & Plan (1) HIV (human immunodeficiency virus infection): Comment: She is doing well She reports being up to date on health care maintenance. She has no concerns. She is viral load slightly elevated at 63,has forgot med. Code(s): B20 - Human immunodeficiency virus [HIV] disease Category: Medical Plan: Would continue Odefsey for now and adherence stressed. I did give literature on Cabenuva and patient will let us know next visit if desired or before. 6 month refills written for. Urinalysis look for CKD. Get anal Pap with District Sales Manager visit. Labs such as HIV viral load and CD4 count for next visit. PCV20 and meningitis vaccine. Bone density. Orders: Orders HIV-1 RNA QN PCR Expanded 5 Months B20 - Human immunodeficiency virus [HIV] disease T Spot TB 5 Months B20 - Human immunodeficiency virus [HIV] disease UA and rflx microscopic 5 Months B20 - Human immunodeficiency virus [HIV] disease Hepatitis B Surface Ab Qnt 5 Months B20 - Human immunodeficiency virus [HIV] disease Hepatitis C Antibody 5 Months B20 - Human immunodeficiency virus [HIV] disease Lymphocyte Subset Panel 3 5 Months B20 - Human immunodeficiency virus [HIV] disease Complete Blood Count Auto Diff 5 Months B20 - Human immunodeficiency virus [HIV] disease Basic Metabolic Panel 5 Months B20 - Human immunodeficiency virus [HIV] disease Liver Panel 5 Months B20 - Human immunodeficiency virus [HIV] disease Syphilis Screen 5 Months B20 - Human immunodeficiency virus [HIV] disease XR DEXA axial skeleton Today M89.9 - Disorder of bone, unspecified Medications: Refilled [id number] ala 200-25-25 mg (Odefsey) must administer with a meal/food 1 tab PO DAILY 90 days 90 tabs 1RF Coding Level of Care Code Est Pt Level 4 (40717) Diagnoses HIV (human immunodeficiency virus infection) B20
[2025-02-25 13:59] VITALS: PULSE 107; O2SAT 99
--- OUTSIDE RECORDS SUMMARY | 2025-02-25 15:45 | XMS_ITS | Clinical Summary ---
Author Organization [facility] [address] [place] [address] [place] [address] Phone Care Team Providers Care National Account Executive Name Role Phone Vivian Xavier MD Primary Care Provider [phone] Allergies Active Allergy Reactions Criticality Noted Date [...] update External hemorrhoids 08/24/2006 Overview (09/05/2024): IMO [id number] update Human immunodeficiency virus (HIV) disease [place] [place] [facility] [place] 08/24/2006 Pneumocystosis [place] [place] [facility] [place] 2005 Encounters Date Type Department Care Team Description 12/12/2024 9:30 AM EDT Ancillary Procedure [facility] [address] [place] [address] Heart murmur from Last 3 [...] Date Comments Human immunodeficiency virus (HIV) disease [place] [place] [facility] [place] 08/24/2006 DX:Human immunodefi ciency virus (HIV) disease ([facility]) Unspecified disorder of kidn ey and ureter 08/24/2006 DX:Unspecified disorder of k idney and ureter Pneumocystosis [place] [place] [facility]) 08/24/2006 DX:Pneumocystosis ([facility]) Endometriosis DX:Endometriosis Covid-19 02/2020 DX:COVID-19 [...] (12/12/2024 10:10 AM EDT) Left Atrium Minor [place] 5.8 cm CV PACS Left Atrium Major [place] 5.5 cm CV PACS LA Area Sys [...] Volume 84 mL CV PACS MV Deceleration [place] 4.5 m/s2 CV PACS E Wave Deceleration [...] S' 12 cm/s CV PACS RA Major [place] 4.7 cm CV PACS RA Major [place] Index 2.8 2.2 - 2.8 cm/m2 CV [...] is recommended in 1 year. Mammo Location: [facility], [address] [place] [address], [facility], . -------- FINAL REPORT -------- Dictated By: Kayley Eid Dictated Date: 09/21/2024 09:07 ET Assigned Physician: Kayley Eid Reviewed and Electronically Signed By: Kayley Eid Signed Date: 09/21/2024 09:19 ET Workstation ID: [id number] Transcribed By: Self Edit Transcribed Date: 09/21/2024 [...] is recommended in 1 year. Mammo Location: [facility], [address] [place] [address], [id number], . -------- FINAL REPORT -------- Dictated By: Kayley Eid Dictated Date: 09/21/2024 09:07 ET Assigned Physician: Kayley Eid Reviewed and Electronically Signed By: Kayley Eid Signed Date: 09/21/2024 09:19 ET Workstation ID: [id number] Transcribed By: Self Edit Transcribed Date: 09/21/2024 09:07 ET us Vivian Xavier MD [facility] BI PROCEDURES Final Result * Lipid panel (06/22/2024) LDL/HDL Ratio 2 0 - 4 Triglycerides 62 0 - 150 mg/dL Cholesterol 185 0 - 200 mg/dL HDL 80 >=40 mg/dL LDL Cholesterol 93 0 - 100 mg/dL Blood Venous blood specimen / Unknown Historical Provider LAB BLOOD ORDERABLES Cate l Result * Cervical Cancer Screening: HPV (06/09/2023) Pathologist [facility], [facility] Cervical Cancer Screening: HPV negative, abstracted Historical Provider HEALTH MAINTENANCE Final Result * Hepatitis C Screening (06/09/2023) Pathologist [facility], [facility] Hepatitis C Screening abstracted Historical Provider HEALTH MAINTENANCE Final Result * Colonoscopy (11/09/2018) Pathologist [facility], [facility] Colonoscopy no interpretation , abstracted Anatomical Region Laterality Modality Other Historical Provider HEALTH MAINTENANCE Final Result from Last 3 Months or Most Recently Relevant to Health Maintenance [place] [address] [place] [address] PLAN Care Teams National Account Executive Relationship Specialty Start Date End Date Vivian Xavier MD [address] [place] [id number] PCP - General 09/29/22
== END 2025-02-25 14:21 | disposition home or self-care (01) ==
LOC: HO.HID 13:53
PROVIDERS: PCP Internal Medicine; Visit Provider Internal Medicine
DX: B20 Human immunodeficiency virus [HIV] disease (principal)
CPT/HCPCS: 99214

== ENCOUNTER → 2025-02-25 13:53 | Outpatient (BNVA) | payer OTHER, SELFPAY | PROVIDERS: PCP Internal Medicine; Visit Provider Internal Medicine | DX: B20 Human immunodeficiency virus [HIV] disease (principal) | CPT/HCPCS: 99212 ==

== ENCOUNTER 2025-05-02 09:59 | Outpatient (REF) | payer OTHER, SELFPAY ==
--- NOTE | ~2025-05-02 | MM_ITS ---
EXAMINATION: DXA BONE DENSITY AXIAL HISTORY: M89.9 - Disorder of bone, unspecified TECHNIQUE: RECESS. Dual energy absorptiometry (DEXA) of the lumbar spine, total left hip, and femoral neck was performed. COMPARISON: There are no prior studies for comparison. FINDINGS: The bone mineral density of the lumbar spine is 0.972 g/cm2, corresponding to a T-score of -1.7, and a Z-score of -0.9. This is indicative of osteopenia. The bone mineral density of the left total hip is 0.852 g/cm2, corresponding to a T-score of -1.2, and a Z-score of -0.5. This is indicative of osteopenia. The bone mineral density of the left femoral neck is 0.806 g/cm2, corresponding to a T-score of -1.7, and a Z-score of -0.6. This is indicative of osteopenia. FRACTURE RISK: The FRAX index suggests a risk of major osteoporotic fracture of 4.3%, and of hip fracture 0.4%. MM/XR DEXA axial skeleton IMPRESSION: Based on bone mineral density, and according to World Health Organization (WHO) criteria, the diagnosis is consistent with osteopenia. Statistically, 68% of repeat scans fall within 1 SD (+/- 0.010 g/cm2 for AP spine L1-L4) and 1 SD (+/- 0.012 g/cm2 for femur total) FRAX is a trademark of the [employer] [place] [employer] Met[employer] Disease, a World Health Organization (WHO) Collaborating Center. Electronically signed by: David Lobo MD 05/02/2025 10:53 AM EDT
--- OUTSIDE RECORDS SUMMARY | 2025-05-02 10:40 | XMS_ITS | Clinical Summary ---
Author Organization [employer] Address [address] [facility] [address] [place] [address] Care Team Providers Care Precision Devices Inspector/Tester Name Role Phone Unavailable Primary Care Provider Unavailabl e Encounters Date Type Department Care Team Description 02/15/2025 Orders Only GENERIC EXTERNAL DATA DEPARTMENT Provider, Generic External Data from Last 3 Months Social History Tobacco Use Types Packs/Day Years Used Date Smoking Tobacco: Never Assessed Comments Unknown Sex and Gender Information Value Date Recorded Sex Assigned at Female 07/19/2022 10:38 AM EDT Legal Sex Female 10:38 AM EDT Gender Identity Female 07/19/2022 10:38 AM EDT Sexual Orientation Don't know 07/19/2022 10 :38 AM EDT Plan of Treatment Health Maintenance Due Date Last Done Comments CT Colonography 1966 Colonoscopy 1966 Colorectal Cancer Screening 1966 Depression Screening 1966 FIT DNA/Cologuard 1966 FIT 1966 FOBT 1966 Sigmoidoscopy 1966 Disability Screening 1966 Alcohol/Substance Use Screening 1978 Tobacco Screening 1978 Hepatitis B Vaccines (1 of 3 - 19+ 3-dose series) 1985 Pap Smear 1987 Cervical Cancer Screening 1996 HPV/Cotest 1996 Zoster Vaccines (1 of 2) 2016 Pneumococcal Vaccine: 50+ Years (2 of 2 - PPSV23) 04/13/2017 04/13/2016 COVID-19 Vaccine (2023- season) 2024 02/10/2021, 01/13/2021 Influenza Vaccine (#1) 2025 , 07/15/2021, 07/02/2020, Additional history exists Mammogram 09/20/2026 09/20/2024, 09/20/2024 DTaP/Tdap/Td Vaccines (3 - Td or Tdap) 06/18/2034 06/18/2024, 06/14/2013, 10/07/2006 RSV Patients and Patients Aged 60 years or older (1 - 1-dose 75+ series) 2041 HIB Vaccines Aged Out No longer eligi ble based on patient's age to complete this topic HPV Vaccines Aged Out No longer eligi ble based on patient's age to complete this topic Hepatitis A Vaccines Aged Out No long er eligible based on patient's age to complete this topic IPV Vaccines Aged Out No longer eligi ble based on patient's age to complete this topic Meningococcal B Vaccine Aged Out No l onger eligible based on patient's age to complete this topic Meningococcal Vaccine Aged Out No juan ramon felix eligible based on patient's age to complete this topic RSV under 20 months Aged Out No longe r eligible based on patient's age to complete this topic Rotavirus Vaccines Aged Out No longer eligible based on patient's age to complete this topic Procedures Procedure Name Priority Date/Time Associated Diagnosis Comments LYMPHOCYTE SUBSET PANEL 3, T CELLS Routine 02/15/2025 10:10 AM EDT from Last 3 Months Results * (ABNORMAL) Lymphocyte Subset Panel 3 (02/15/2025 10:10 AM EDT) Absolute Lymphocytes 1732 850 - 3900 cells/uL [facility] Comment:THIS TEST WAS PERFOR MED AT:[employer] [place] [address]BHTTCEWROSIBEL JANSEN MD,PHD Absolute CD3 1196 840 - 3060 cells/uL [facility] % CD3 69 57 - 85 % [facility] Absolute CD4 Count 566 490 - 1740 cells/uL [facility] % CD4 33 30 - 61 % [facility] Absolute CD8 Count 673 180 - 1170 cells/uL [facility] % CD8 39 12 - 42 % [facility] CD4/CD8 Ratio 0.84(A) 0.86 - 5.00 [facility] Lymphocyte Subset Panel Comment TNP [facility] 02/15/2025 10:1 0 AM EDT 02/15/2025 1:18 PM EDT us Generic External Data Provider LAB BLOOD ORDERAB LES Final Result [facility] [address] [place] [phone] from Last 3 Months
--- OUTSIDE RECORDS SUMMARY | 2025-05-02 10:40 | XMS_ITS ---
Author Name [facility] Organization Unknown Care Team Organization Name Specialty Phone Email Start Date End Da te [facility] Matheus Grant Primary Care 02/25/2023 05/07/2024 [facility] Carito Galindo Primary Care 07/27/2022
--- OUTSIDE RECORDS SUMMARY | 2025-05-02 10:40 | XMS_ITS | Clinical Summary ---
Author Organization [facility] [address] [place] [address] [place] [address] Phone Care Team Providers Care Or Rn Name Role Phone Vivian Xavier MD Primary Care Provider [phone] Allergies Active Allergy Reactions Criticality Noted Date [...] update External hemorrhoids 08/24/2006 Overview (09/05/2024): IMO [id number] update Human immunodeficiency virus (HIV) disease ([facility] [place], [facility]) 08/24/2006 Pneumocystosis ([facility] [place], [facility]) 2005 Encounters Date Type Department Care Team Description 02/26/2025 [place] [facility] [address] [phone] Vivian Xavier MD Referral from Last 3 Months Immunizations Name Administration [...] Date Comments Human immunodeficiency virus (HIV) disease ([facility] [place], [facility]28) 08/24/2006 DX:Human immunodefi ciency virus (HIV) disease ([facility]) Unspecified disorder of kidn ey and ureter 08/24/2006 DX:Unspecified disorder of k idney and ureter Pneumocystosis ([facility], [facility]28) 08/24/2006 DX:Pneumocystosis ([facility]) Endometriosis DX:Endometriosis Covid-19 02/2020 DX:COVID-19 [...] 80 11/07/2024 12:58 PM EST Temperature 36 C (96.8 F) 11/07/2024 12:58 PM EST Respiratory Rate 14 11/07/2024 12:58 PM EST Oxygen Saturation - - Inhaled Oxygen Concentration - - Weight 71.7 kg (158 lb) 12/12/2024 1:55 PM EDT Height 147.3 cm (4' 10 ) 12/12/2024 1:55 PM EDT Body Mass Index 33.02 12/12/2024 1:55 PM EDT Plan of Treatment Upcoming Encounters Date Type Department Care Team (Late st Contact Info) Description 06/19/2025 11:30 AM EDT Office Visit Adult Medicine [address] [phone] Candie Rodrigues PA [address] [place] [phone] Health Maintenance Due Date Last Done Comments [...] - Moderna risk series) 03/10/2021 02/10/2021, 01/13/2021 Social Influencers of Health Screening 08/28/2022 Depression Screening 09/19/2024 Influenza Vaccine (#1) 2025 , 07/22/2023, 07/21/2022, Additional history exists Breast Cancer Screening 09/20/2026 09/20/19, 2023, 09/07/2022, Additional history exists Cervical Cancer Screening: HPV 06/09/2028 06/09/2023 Colorectal Cancer Screening: Colonoscopy 11/09/2028 11/09/2018 Cholesterol Screening (Lipid Panel) 06/22/2029 06/22/2024, 06/22/2024 DTaP,Tdap,and Td Vaccines (4 - Td or Tdap) 06/18/2034 06/18/2024, 06/14/2013, 10/07/2006 Hepatitis C Screening Completed 06/09/2023 HIB Vaccines Aged Out No longer eligi [...] Procedure Name Priority Date/Time Associated Diagnosis Comments MG MAMMO DIGITAL SCREENING W CARLOS ENRIQUE BILAT Routine 09/20/2024 1:14 PM EST Encounter for screening mammogram for breast cancer LIPID PANEL Routine 06/22/2024 HM HPV Routine 06/09/2023 HM HEPATITIS C SCREENING Routine 06/09/2023 COLONOSCOPY Routine 11/09/2018 from Last 3 Months or Most Recently Relevant to Health Maintenance Results * MG Mammo Digital Screening w Carlos Enrique bilat (09/20/2024 1:14 PM EST) Anatomical Region Laterality Modality Breast Bilateral Mammography 09/21/2024 9:07 AM EST Impressions 09/21/2024 9:19 AM EST 1. No mammographic evidence of malignancy 2. Scattered fibroglandular tissue BI-RADS CATEGORY: 2 - BENIGN RECOMMENDATION: Screening bilateral mammogram is recommended in 1 year. Mammo Location: [facility], [address] [place] [address], [address], . -------- FINAL REPORT -------- Dictated By: Kayley Eid Dictated Date: 09/21/2024 09:07 ET Assigned Physician: Kayley Eid Reviewed and Electronically Signed By: Kayley Eid Signed Date: 09/21/2024 09:19 ET Workstation ID: [id number] Transcribed By: Self Edit Transcribed Date: 09/21/2024 09:07 ET Narrative 09/21/2024 9:19 AM EST A BILATERAL DIGITAL 3D SCREENING MAMMOGRAPHY HISTORY: Routine screening. Family history of breast cancer in aunt COMPARISON: Multiple priors dating back to 08/21/2020 Technique: Bilateral full field digital mammography (3D) was performed using standard CC and MLO projections CAD was [...] is recommended in 1 year. Mammo Location: [facility], [address] [place] [address], [id number], . -------- FINAL REPORT -------- Dictated By: Kayley Eid Dictated Date: 09/21/2024 09:07 ET Assigned Physician: Kayley Eid Reviewed and Electronically Signed By: Kayley Eid Signed Date: 09/21/2024 09:19 ET Workstation ID: [id number] Transcribed By: Self Edit Transcribed Date: 09/21/2024 09:07 ET Vivian Xavier MD IMG BI PROCEDURES Final Result * Lipid panel (06/22/2024) LDL/HDL Ratio 2 0 - 4 Triglycerides 62 0 - 150 mg/dL Cholesterol 185 0 - 200 mg/dL HDL 80 >=40 mg/dL LDL Cholesterol 93 0 - 100 mg/dL Blood Venous blood specimen / Unknown Historical Provider LAB BLOOD ORDERABLES Cate l Result * Cervical Cancer Screening: HPV (06/09/2023) Pathologist [facility] Cervical Cancer Screening: HPV negative, abstracted Historical Provider HEALTH MAINTENANCE Final Result * Hepatitis C Screening (06/09/2023) Pathologist [facility] Hepatitis C Screening abstracted [facility] Provider HEALTH MAINTENANCE Final Result * Colonoscopy (11/09/2018) Pathologist [facility] Colonoscopy no interpretation , abstracted Anatomical Region Laterality Modality Other Historical Provider HEALTH MAINTENANCE Final Result from Last 3 Months or Most Recently Relevant to Health Maintenance [place] [address] [place] [address] HEALTH PLAN Care Teams Or Rn Relationship Specialty Start Date End Date Vivian Xavier MD [address] [place] [phone] PCP - General 09/29/22
== END 2025-05-02 10:00 | disposition home or self-care (01) ==
LOC: HO.MAMMO 09:59
PROVIDERS: Visit Provider Internal Medicine
DX: Z13.820 Encounter for screening for osteoporosis (principal); M89.9 Disorder of bone, unspecified; M85.89 Other specified disorders of bone density and structure, multiple sites
CPT/HCPCS: 77080

== ENCOUNTER → 2025-05-02 10:30 | Outpatient (BNV) | payer OTHER, SELFPAY | PROVIDERS: Visit Provider Radiology Diagnostic Radiology | DX: E28.39 Other primary ovarian failure (principal) | CPT/HCPCS: 77080 ==

== ENCOUNTER 2025-08-17 11:53 | Outpatient (REF) | payer OTHER, SELFPAY ==
--- OUTSIDE RECORDS SUMMARY | 2025-08-13 10:00 | XMS_ITS | Encounter Summary ---
Author Organization [facility] Address [address] [place] [address] Care Team Providers Care Cashier Name Role Phone Vivian Xavier MD Primary Care Provider [phone] Reason for Visit * Reason Comments Gynecologic Exam Encounter Details Date Type Department Care Team ([facility] st Contact Info) Description 08/13/2025 10:00 AM EST Office Visit Obstetrics and Gynecology - [address] [phone] Nel Nava, [facility] [address] [place] [id number] Encounter for gynecological examination without abnormal finding (Primary Dx); Human immunodeficiency virus (HIV) disease ([facility] V24, [facility] V28) Social History Tobacco Use Types Packs/Day Years Used Date Smoking Tobacco: Never Smokeless Tobacco: Never Alcohol Use Standard Drinks/Week Comments Not Currently 0 (1 standard drink = 0.6 oz pur e alcohol) Housing Instability Answer Date Recorde d Are you worried that in the next 2 months you may not have stable housing? No 07/03/2025 Food Access & Nutrition Answer Date Rec orded Do you have access to a vari ety of food including fruits and vegetables? Yes 07/03/2025 Access to Healthcare Answer Date Record ed Within the last 3 months, francisco w many times did you visit the emergency department for your medical care? 0 07/03/2025 Health Literacy Answer Date Recorded How often do you need to hav e someone help you when you read instructions, pamphlets, or other written material from your doctor or pharmacy? Never 07/03/2025 Caregiver: How often do you need to have someone help you when you read instructions, pamphlets, or other written material from your doctor or pharmacy? Not on file 07/03/2025 Financial Risk Answer Date Recorded How hard is it for you to pa y for the very basics like food, housing, medical care, and air conditioning / heating? Not very hard 07/03/2025 Transportation Answer Date Recorded Has the lack of transportati on kept you from meetings, work, or from getting things needed for daily living? No Has the lack of transportati on kept you from medical appointments or from getting medications? No 07/03/2025 Social Isolation Answer Date Recorded How often do you feel lonely or isolated from ose around you? Never 07/03/2025 Food Risk Answer Date Recorded Within the past 12 months we worried whether our food would run out before we got money to buy more. Never true 07/03/2025 Within the past 12 months th e food we bought just didn't last and we didn't have money to get more. Never true 07/03/2025 Dependent Care Answer Date Recorded Do you need help finding or paying for care for your loved ones. For example, child adolescent psychiatrist or elderly care for an older adult? No 07/03/2025 Education Answer Date Recorded Do you think completing more education or training, like finishing a GED, going to college, or learning a trade, would be helpful for you? No 07/03/2025 Employment and Income Answer Date Recor ded During the last four weeks, have you been actively looking for work? No 07/03/2025 Living Situation Answer Date Recorded What is your living situation? Unrecognized valu e 07/03/2025 Comments No Sex and Gender Information Value Date Recorded Sex Assigned at Not on file Legal Sex Female 11:38 AM EST Gender Identity Not on file Sexual Orientation Not on file documented as of this encounter Last Filed Vital Signs Vital Sign Reading Time Taken Comments Blood Pressure 119/72 08/13/2025 10:03 AM EST Pulse 72 08/13/2025 10:03 AM EST Temperature - - Respiratory Rate 14 08/13/2025 10:03 AM EST Oxygen Saturation - - Inhaled Oxygen Concentration - - Weight 69.1 kg (152 lb 6.4 oz) 08/13/2025 10:03 AM EST Height 145 cm (4' 9.09 ) 08/13/2025 10:03 AM EST Body Mass Index 32.88 08/13/2025 10:03 AM EST documented in this encounter Progress Notes * Nel Claudine Nava, LM - 08/13/2025 10:00 AM EST Office note: Annual Exam Encounter Date: 08/13/2025 HPI: Laverne Grajeda is a 59 y.o. who presents for routine annual exam. No LMP recorded. Patient is postmenopausal. Feeling well, no internet marketing assistant concerns. Viral level remains undetectable. No PMB. SA with one male partner, declines STI testing. Eating a healthy diet and exercising regularly. Review of Systems - General ROS: negative Psychological ROS: negative Ophthalmic ROS: negative ENT ROS: negative Allergy and Immunology ROS: negative Hematological and Lymphatic ROS: negative Endocrine ROS: negative Breast ROS: negative for breast lumps Respiratory ROS: no cough, shortness of breath, or wheezing Cardiovascular ROS: no chest pain or dyspnea on exertion Gastrointestinal ROS: no abdominal pain, change in bowel habits, or black or bloody stools Genito-Urinary ROS: no dysuria, trouble voiding, or hematuria Musculoskeletal ROS: negative Neurological ROS: negative Dermatological ROS: negative Health Maintenance and Preventative Care: Health Maintenance: Last mammogram: 2024 BIRADS 2 Immunization History Administered Date(s) Administered Influenza Quadravalent, MDCK, 0.5ml, preservative free (Flucelvax) 6mo and older 07/15/2021 Influenza Quadravalent, MDCK, 0.5ml, with preservative (Flucelvax) 6mo and older 06/26/2017, 06/07/2018 Influenza trivalent, 0.5mL, preservative free (Fluarix; FluLaval; Fluzone) ages 6mo and older (Afluria) 3 years and older 08/20/2005, 08/24/2006, 07/20/2007, 06/14/2013, 06/30/2014, 06/09/2015, 07/22/2016, 07/02/2020, 06/18/2024 Influenza, Unspecified 07/09/2019 Moderna SARS-CoV-2 COVID-19, mRNA, LNP-S, preservative free 01/13/2021, 02/10/2021 PPD Test 04/21/2005, 06/20/2012, 01/28/2015, 12/28/2016, 12/20/2018 Pneumococcal conjugate 13 valent (Prevnar 13, PCV13) 2mo and older 04/13/2016 Td Tetanus diptheria (Tdvax) 7yo and older 10/07/2006 Tdap Tetanus diptheria acellular pertussis (Boostrix; Adacel) 7yo and older 06/14/2013, 06/18/2024 OB History Para Term AB Living 4 1 1 3 1 SAB IAB Ectopic Multiple Live Births 2 1 1 # Outcome Date GA Lbr Stanley/2nd Weight Sex Type Anes PTL Lv 4 Term 02/26/88 F CS-Unspec TEMI 3 IAB 2 IAB 1 Ectopic Vice President Of Sales History: Last Pap: 2022 NIL neg HPV H/o abnormal Pap: no Completed Gardasil series: no Domestic violence: no Problem List[1] Medical History[2] Surgical History[3] Family History[4] Social History Socioeconomic History Marital status: Single Spouse name: Not on file Number of children: Not on file Years of education: Not on file Highest education level: Not on file Occupational History Not on file Tobacco Use Smoking status: Never Smokeless tobacco: Never Substance and Sexual Activity Alcohol use: Not Currently Drug use: No Sexual activity: Not on file Comment: lonterm partner Other Topics Concern Not on file Social History Narrative 04/10/2015: Patient lives alone in [place]. No pets in home or smoking in the home. Feels safe at home. Patient does not work. Up to date with the dentist and the eye doctor and has an appointment with SOCIAL INSURANCE ADVISER in April. Visits Dr. Covington every 6 months, las Allergies[5] Prior to Admission medications Medication Sig Start Date End Date Taking? Authorizing Provider multivit-min/iron/FA/vit K/lut ([employer]UM [employer]OM[employer] ORAL) OTC Historical Provider, Medications Taking[6] Physical exam: Blood pressure 119/72, pulse 72, resp. rate 14, height 1.45 m (57.09 ), weight 69.1 kg (152 lb 6.4 oz). Body mass index is 32.88 kg/m??. Gen: Alert, cooperative. Well-appearing on today's exam HEENT: head normocephalic without obvious deformity. Normal dentition. Neck: Trachea midline. No palpable cervical lymphadenopathy noted. Thyroid normal to inspection andpalpation. Cardiovascular: regular rate and rhythm, no m/r/g Lung: clear to auscultation bilaterally, no wheezing, ronchi, normal respiratory effort Breast: Normal appearance, no masses or tenderness, no nipple retraction or dimpling bilaterally. No axillary or supraclavicular lymphadenopathy. Abdomen: Soft,non-tender. No masses palpable, no organomegaly. Extremities: no calf tenderness, discoloration or edema, atraumatic without deformity Psych: Mood and affect appropriate. Pelvic: External Genitalia: Normal architecture, without lesions. No inguinal lymphadenopathy. Vagina: Mucosa is pink with normal rugae. No abnormal discharge or lesions. Cervix: Normal appearance, without discharge or lesions. No cervical motion tenderness. Pap smear obtained. Uterus: Normal size and shape. Non-tender. Mobile Adnexa: No adnexal masses or tenderness bilaterally. Perianal area without lesions Assessment/Plan: 59 y.o. 1. Screening for sexually transmitted infections -testing declined 2. Contraception -menopause 3. Health Maintenance and Screening -Reviewed ASCCP guidelines. Pap smear today, yearly pelvic exam. -Reviewed and encouraged diet and exercise for cardiovascular and bone health -Reviewed breast self awareness. Continue yearly mammogram. -Continue to follow with PCP for general medical care, immunizations -Family and personal history of cancer reviewed. Based on this evaluation, neither BRCA nor Flores testing are indicated. 1. Encounter for gynecological examination without abnormal finding Pap Smear 2. Human immunodeficiency virus (HIV) disease ([facility] V24, [facility] V28) Pap Smear No orders of the defined types were placed in this encounter. Follow up in 1 year (on 08/13/2026). Nel Nava CNM [1] Patient Active Problem List Diagnosis COVID-19 Disorder of kidney and ureter External hemorrhoids Human immunodeficiency virus (HIV) disease ([facility] V24, [facility] V28) Obesity (BMI 30.0-34.9) PMB (postmenopausal bleeding) Pneumocystosis ([facility] V24, [facility] V28) Rosacea Ascending aorta dilation ([facility] V24) [2] Past Medical History: Diagnosis Date COVID-19 02/2020 DX:COVID-19 Endometriosis DX:Endometriosis History of peritoneal dialysis DX:History of peritoneal dialysis Human immunodeficiency virus (HIV) disease ([facility] V24, [facility] V28) 08/24/2006 DX:Human immunodeficiency virus (HIV) disease (HCC) Pneumocystosis (CMS/HCC V24, [facility] V28) 08/24/2006 DX:Pneumocystosis (HCC) Unspecified disorder of kidney and ureter 08/24/2006 DX:Unspecified disorder of kidney and ureter [3] Past Surgical History: Procedure Laterality Date SECTION 1997 PROCEDURE: HISTORICAL DELIVERY TUBAL LIGATION 2001 PROCEDURE: HISTORICAL TUBAL LIGATION [4] Family History Problem Relation Name Age of Onset Dementia Mother Hypertension Mother Other (Other: diabetes) Mother Diabetes Father Hypertension Father Osteoporosis Sister Diabetes Sister 58.00 Diabetes Brother 52.00 Hypertension Brother Colon cancer Brother 47.00 Breast cancer Aunt m 60s maternal side- 70s Ovarian cancer Neg Hx Uterine cancer Neg Hx [5] Allergies Allergen Reactions Minocycline Hcl Other Reaction(s): Hives/Urticaria Sulfamethoxazole-Trimethoprim Other Reaction(s): Hives/Urticaria [6] No outpatient medications have been marked as taking for the 08/13/25 encounter (Office Visit) Faby Nava CNM. documented in this encounter Plan of Treatment Upcoming Encounters Date Type Department Care Team (Late st Contact Info) Description 09/24/2025 10:40 AM EST Appointment Radiology Department - [address] [phone] 10/15/2025 11:00 AM EST Office Visit Adult Medicine [address] [phone] Vivian Xavier MD [address] [place] [address] documented as of this encounter Procedures Procedure Name Priority Date/Time Associated Diagnosis Comments HPV WITH REFLEX GENOTYPE Routine 08/13/2025 10:35 AM EST Human immunodeficiency virus (HIV) disease ([facility] V24, [facility] V28) Encounter for gynecological examination without abnormal finding PAP SMEAR Routine 08/13/2025 10:35 AM EST Human immunodeficiency virus (HIV) disease ([facility] V24, [facility] V28) Encounter for gynecological examination without abnormal finding documented in this encounter Results * HPV with reflex genotype (08/13/2025 10:35 AM EST) HPV Negative Negative LAB MICROBIOLOGY METHOD 08/14/2025 1:49 PM EST [facility] Broom Cervix uteri structure / Unknown 08/13/2025 10:35 AM EST 08/14/2025 6:17 AM EST Nel Nava [facility] MOLECULAR DIAGNOSTICS O RDERABLES Final Result [facility] [address] [place] [id number], * Pap Smear (08/13/2025 10:35 AM EST) Interpretation Negative for intraepithelial lesion or malignancy 08/16/2025 3:31 PM [facility] at 1531 EST General Categorization Negative 08/16/2025 3:31 PM [facility] Specimen Adequacy Satisfactory for evaluation, endocervical/culver sformation zone component present 08/16/2025 3:31 PM EST [facility] Pap Methodology Liquid Based Pap Test 08/16/2025 3:31 PM [facility] Disclaimer The Pap test is a screening test which carries an inherent false negative rate. These test results should be correlated with the patient's clinical findings and history. This Pap test was processed using an automated screening system. Technical cytopathology services provided by [facility], at [address] [place] [id number] (CLIA # [id number]/Diann Hussein MD, Rough Rice Tender.) 08/16/2025 3:31 PM EST [facility] Console Pap Interpretation Reported 08/16/2025 3:31 PM EST [facility]) [facility] Broom Cervix uteri structure / Unknown 08/13/2025 10:35 AM EST 08/13/2025 10:35 AM EST us Nel Nava [facility] CYTOLOGY ORDERABLES Fin al Result [facility] [address] [place] [address], documented in this encounter Visit Diagnoses Diagnosis Encounter for gynecological examination without abnormal finding- Primary Human immunodeficiency virus (HIV) disease ([facility] V24, [facility] V28) Human immunodeficiency virus [HIV] disease documented in this encounter Additional Health Concerns Assessment Noted Time PHQ-9 Depression Total Score: 0 07/03/20 25 4:17 PM EDT documented as of this encounter Care Teams Cashier Relationship Specialty Start Date End Date Vivian Xavier MD [address] [place] [phone] PCP - General 09/29/22 documented as of this encounter
--- OUTSIDE RECORDS SUMMARY | 2025-08-17 11:57 | XMS_ITS | Clinical Summary ---
Author Organization [employer] Address [address] [facility] [address] [place] [address] Care Team Providers Care Veterans Employment Representative Name Role Phone Unavailable Primary Care Provider Unavailabl e Social History Tobacco Use Types Packs/Day Years [...] Vaccine: 50+ Years (2 of 2 - PCV20 or PCV21) 04/13/2017 04/13/2016 COVID-19 Vaccine (3 - 2024- season) 2025 02/10/2021, 01/13/2021 Influenza Vaccine (#1) 2025 , [...]
--- OUTSIDE RECORDS SUMMARY | 2025-08-17 11:57 | XMS_ITS | Encounter Summary ---
Author Organization [facility] Address [address] [place] [address] Care Team Providers Care Insulation Board Coater Operator Name Role Phone Vivian Xavier MD Primary Care Provider [phone] Encounter Details Date Type Department Care Team ([facility] st Contact Info) Description 07/08/2025 Results Follow-Up Adult Medicine [facility] [address] [place], [place] [phone] Karlos Marinelli, LEAD WELDER [address] [place], [place] Social History Tobacco Use Types Packs/Day Years [...] Record ed Within the last 3 months, ho w many times did you visit the [...] do you feel lonely or isolated from th ose around you? Never 07/03/2025 Food Risk [...] care for your loved ones. For example, early childhood education coordinator or elderly care for an older adult? [...] on file documented as of this encounter Plan of Treatment Upcoming Encounters Date Type Department Care Team (Late st Contact Info) Description 09/24/2025 10:40 AM EST Appointment Radiology Department - [address] [phone] 10/15/2025 11:00 AM EST Office Visit Adult Medicine [place] [address] [phone] Vivian Xavier MD [address] [place] [address] documented as of this encounter Visit Diagnoses Not on filedocumented in this encounter Additional Health Concerns Assessment Noted Time PHQ-9 Depression Total Score: 0 07/03/20 25 4:17 PM EDT documented as of this encounter Care Teams Insulation Board Coater Operator Relationship Specialty Start Date End Date Vivian Xavier MD [address] [place] [address] PCP - General 09/29/22 documented as of this encounter
--- OUTSIDE RECORDS SUMMARY | 2025-08-17 11:57 | XMS_ITS | Clinical Summary ---
Author Organization [facility] [address] [place] [address] [place] [address] Phone Care Team Providers Care Lead Software Development Engineer Name Role Phone Vivian Xavier MD Primary Care Provider [phone] Allergies Active Allergy Reactions Criticality Noted Date Comments Minocycline Hcl 01/08/2008 Other Reaction(s): Hives/Urticaria Sulfamethoxazole-Trimethopri m 08/24/2006 Other Reaction(s): Hives/Urticaria Medications multivit-min/iron/ FA/vit K/lut ([employer]) OTC Active Active Problems Problem Noted Date Diagnosed Date Ascending aorta dilation ([facility] V24) Overview (01/07/2025): 3.8 cm COVID-19 09/05/2024 PMB (postmenopausal bleeding) 12/18/2020 Overview (09/05/2024): 11/2020 Pt is schf or ultrasund and EMB Obesity (BMI 30.0-34.9) 04/16/2019 Rosacea 01/07/2012 Disorder of kidney and ureter 08/24/2006 Overview (09/05/2024): IMO update External hemorrhoids 08/24/2006 Overview (09/05/2024): IMO update Human immunodeficiency virus (HIV) disease (CMS/HCC V24, [facility] [place] 08/24/2006 Overview (08/13/2025): Needs Pap smear and HPV testing every three years throughout lifetime Pneumocystosis ([facility] [place], [facility] [place]28) 2005 Encounters Date Type Department Care Team Description 08/13/2025 10:00 AM EST Office Visit Obstetrics and Gynecology - [address] [phone] Nel Nava CNM Encounter for gynecological examination without abnormal finding (Primary Dx); Human immunodeficiency virus (HIV) disease ([facility] [place], [facility] [place]28) 07/08/2025 Results Follow-Up [address] [phone] Karlos Marinelli, DAMARIS 07/06/2025 9:45 AM EDT Clinic Lab Collection Walk-In Clinic - [address] [phone] Annual physical exam; Encounter for screening for cardiovascular disorders 07/04/2025 Telephone Adult [address] [phone] Vivian Xavier MD 07/03/2025 4:30 PM EDT Office Visit [address] [phone] Karlos Marinelli NP Annual physical exam (Primary Dx); Encounter for screening for cardiovascular disorders 06/18/2025 Telephone Adult [address] [phone] Vivian Xavier MD from Last 3 Months Immunizations Immunization Administration Dates Next Due Influenza Quadravalent, MDCK [...] Date Comments Human immunodeficiency virus (HIV) disease ([facility] V24, [facility] V28) 08/24/2006 DX:Human immunodefi ciency virus (HIV) disease ([facility]) Unspecified disorder of kidn ey and ureter 08/24/2006 DX:Unspecified disorder of k idney and ureter Pneumocystosis ([facility] V24, [facility] V28) 08/24/2006 DX:Pneumocystosis ([facility]) Endometriosis DX:Endometriosis Covid-19 02/2020 DX:COVID-19 History of [...] care for your loved ones. For example, attendant child activity or elderly care for an older adult? [...] Sexual Orientation Not on file Obstetrics History * This document contains information received from the source organization and may not represent a complete record from that organization. Para Term AB IAB SAB Ectopic Multiple Livin g Live Births 4 1 1 1 1 1 Date Outcome GA Total Labor Labor/2nd/3rd Weight Sex Type Anes PTL Rashmi A1 A5 Name Clin Ectopic 1986 Term F CS-Un spec Living Last Filed Vital Signs Vital Sign Reading Time Taken Comments Blood Pressure 119/72 08/13/2025 10:03 AM EST Pulse 72 08/13/2025 10:03 AM EST Temperature 36.3 C (97.3 F) 07/03/2025 4:11 PM EDT Respiratory Rate 14 08/13/2025 10:03 AM EST Oxygen Saturation 100% 07/03/2025 4:11 PM EDT Inhaled Oxygen Concentration - - Weight 69.1 kg (152 lb 6.4 oz) 08/13/2025 10:03 AM EST Height 145 cm (4' 9.09 ) 08/13/2025 10:03 AM EST Body Mass Index 32.88 08/13/2025 10:03 AM EST Plan of Treatment Upcoming Encounters Date Type Department Care Team (Late st Contact Info) Description 09/24/2025 10:40 AM EST Appointment Radiology Department - [address] [phone] 10/15/2025 11:00 AM EST Office Visit Adult Medicine [address] [phone] Vivian Xavier MD [address] [place] [address] Health Maintenance Due Date Last Done Comments Meningococcal ACWY Vaccine (1 - Risk 2-dose series) 1968 MMR Vaccines (1 of 2 - Risk 2-dose series) 1984 Pneumococcal Vaccine: 50+ Years (2 of 2 - PPSV23, PCV20, or PCV21) 06/08/2016 04/13/2016 RSV Immunization Adult Patients (1 - Risk 50-74 years 1-dose series) 2016 COVID-19 Vaccine (3 - Moderna risk series) 03/10/2021 02/10/2021, 01/13/2021 Social Influencers of Health Screening 07/03/2026 07/03/2025 Breast Cancer Screening 09/20/2026 09/20/19, 2023, 09/07/2022, Additional history exists Colorectal Cancer Screening: Colonoscopy 11/09/2028 11/09/2018 Cholesterol Screening (Lipid Panel) 07/06/2030 07/06/2025, 06/22/2024, 06/22/2024 Cervical Cancer Screening: HPV 08/13/2030 08/13/2025, 06/09/2023 DTaP,Tdap,and Td Vaccines (4 - Td or Tdap) 06/18/2034 06/18/2024, 06/14/2013, 10/07/2006 Hepatitis C Screening Completed 06/09/2023 Depression Screening Completed 07/03/2025 Influenza Vaccine Completed 07/20/2025, , 07/22/2023, Additional history exists HIB Vaccines Aged Out No longer eligi ble based on patient's age to complete this topic HPV Vaccines Aged Out No longer eligi ble based on patient's age to complete this topic Hepatitis A Vaccines Discontinued Hepatitis B Vaccines Discontinued IPV Vaccines Aged Out No longer eligi [...] on patient's age to complete this topic Zoster Vaccines Discontinued Procedures Procedure Name Priority Date/Time Associated Diagnosis Comments PAP SMEAR Routine 08/13/2025 10:35 AM EST Human immunodeficiency virus (HIV) disease ([facility] V24, [facility] V28) Encounter for gynecological examination without abnormal finding HPV WITH REFLEX GENOTYPE Routine 08/13/2025 10:35 AM EST Human immunodeficiency virus (HIV) disease ([facility] V24, [facility] V28) Encounter for gynecological examination without abnormal finding CBC WITH AUTO DIFFERENTIAL Routine 07/06/2025 9:47 AM EDT Annual physical exam Encounter for screening for cardiovascular disorders COMPREHENSIVE METABOLIC PANEL Routine 07/06/2025 9:47 AM EDT Annual physical exam Encounter for screening for cardiovascular disorders LIPID PANEL WITH REFLEX TO DIRECT LDL Routine 07/06/2025 9:47 AM EDT Encounter for screening for cardiovascular disorders THYROID STIMULATING HORMONE WITH REFLEX TO FREE T4 AND FREE T3 Routine 07/06/2025 9:47 AM EDT Annual physical exam Encounter for screening for cardiovascular disorders CBC AND DIFFERENTIAL Routine 07/06/2025 9:47 AM EDT Annual physical exam Encounter for screening for cardiovascular disorders HEMOGLOBIN A1C Routine 07/06/2025 9:47 AM EDT Annual physical exam Encounter for screening for cardiovascular disorders MG MAMMO DIGITAL SCREENING W KIKE BILAT Routine 09/20/2024 1:14 PM EST Encounter for screening mammogram for breast cancer HEPATITIS C SCREENING Routine 06/09/2023 COLONOSCOPY Routine 11/09/2018 from Last 3 Months or Most Recently Relevant to Health Maintenance Results * HPV with reflex genotype (08/13/2025 10:35 AM EST) HPV Negative Negative LAB MICROBIOLOGY METHOD 08/14/2025 1:49 PM EST [facility] Broom Cervix uteri structure / Unknown 08/13/2025 10:35 AM EST 08/14/2025 6:17 AM EST Nel GOULD LAB MOLECULAR DIAGNOSTICS O RDERABLES Final Result [facility] [address] [place] [address], [place] [phone] * Pap Smear (08/13/2025 10:35 AM EST) Interpretation Negative for intraepithelial lesion or malignancy 08/16/2025 3:31 PM [facility] at 1531 EST General Categorization Negative 08/16/2025 3:31 PM [facility] Specimen Adequacy Satisfactory for evaluation, endocervical/culver sformation zone component present 08/16/2025 3:31 PM [facility] Pap Methodology Liquid Based Pap Test 08/16/2025 3:31 PM [facility] Disclaimer The Pap test is a screening test which carries an inherent false negative rate. These test results should be correlated with the patient's clinical findings and history. This Pap test was processed using an automated screening system. Technical cytopathology services provided by [facility], at [address] [place] [address] (CLIA # [id number]/Diann Hussein MD, Pocket Flap Creasing Machine Operator.) 08/16/2025 3:31 PM [facility] Console Pap Interpretation Reported 08/16/2025 3:31 PM [facility] Broom Cervix uteri structure / Unknown 08/13/2025 10:35 AM EST 08/13/2025 10:35 AM EST Nel Nava [facility] CYTOLOGY ORDERABLES Fin al Result [facility] [address] [place] [address], * Thyroid stimulating hormone with reflex to free t4 and free t3 (07/06/2025 9:47 AM EDT) TSH 1.55 0.40 - 4.00 mcIU/mL LAB CHEMISTRY METHOD 07/06/2025 6:56 PM EDT [facility] Blood Venous blood specimen / Unknown Venipuncture / Unknown 07/06/2025 9:47 AM EDT 07/06/2025 9:47 AM EDT us Karlos Marinelli SOFTWARE PRODUCT MANAGER LAB BLOOD ORDERABLES Final R esult [facility] [address] [place] [address], [place] [phone] * (ABNORMAL) Lipid panel with reflex to direct LDL (07/06/2025 9:47 AM EDT) Cholesterol 192 0 - 200 mg/dL LAB CHEMISTRY METHOD 07/06/2025 6:11 PM EDT [facility] Triglycerides 64 0 - 150 mg/dL LAB CHEMISTRY METHOD 07/06/2025 6:11 PM T [facility] HDL 74 >=40 mg/dL LAB CHEMISTRY METHOD 07/06/2025 6:11 PM EDT [facility] LDL Calculated 105(H) 0 - 100 mg/dL LAB CHEMISTRY METHOD 07/06/2025 6:11 PM T [facility] Comment:Estimated LDL Calcul ated using equation: Total cholesterol - HDL cholesterol - (Triglycerides/5) VLDL Cholesterol Conner 12.8 mg/dL LAB CHEMISTRY METHOD 07/06/2025 6:11 PM T [facility] Non HDL Chol. (LDL+VLDL) 118 <145 mg/dL LAB CHEMISTRY METHOD 07/06/2025 6:11 PM T [facility] Chol/HDL Ratio 2.6 0.0 - 4.4 LAB CHEMISTRY METHOD 07/06/2025 6:11 PM [facility] Blood Venous blood specimen / Unknown Venipuncture / Unknown 07/06/2025 9:47 AM EDT 07/06/2025 9:47 AM EDT us Karlos Marinelli SOFTWARE PRODUCT MANAGER LAB BLOOD ORDERABLES Final R esult [facility] [address] [place] [address], [place] [phone] * (ABNORMAL) CBC auto differential (07/06/2025 9:47 AM EDT) WBC 4.1(L) 4.8 - 10.8 K/mcL LAB HEMETOLOGY METHOD 07/06/2025 5:47 PM EDT [facility] RBC 4.90(H) 3.80 - 4.80 M/mcL LAB HEMETOLOGY METHOD 07/06/2025 5:47 PM EDT [facility] Hemoglobin 13.9 11.5 - 16.0 g/dL LAB HEMETOLOGY METHOD 07/06/2025 5:47 PM EDT [facility] Hematocrit 43.3 35.0 - 47.0 % LAB HEMETOLOGY METHOD 07/06/2025 5:47 PM EDT [facility] MCV 89.1 79.0 - 98.0 FL LAB HEMETOLOGY METHOD 07/06/2025 5:47 PM EDT [facility] MCH 28.6 27.0 - 32.0 pcg LAB HEMETOLOGY METHOD 07/06/2025 5:47 PM EDT [facility] MCHC 32.1 32.0 - 37.0 g/dL LAB HEMETOLOGY METHOD 07/06/2025 5:47 PM EDT [facility] RDW 13.7 11.0 - 15.0 % LAB HEMETOLOGY METHOD 07/06/2025 5:47 PM EDT [facility] Platelets 175 130 - 400 K/mcL LAB HEMETOLOGY METHOD 07/06/2025 5:47 PM EDT [facility] MPV 9.8 7.0 - 11.0 FL LAB HEMETOLOGY METHOD 07/06/2025 5:47 PM EDT [facility] NRBC 0.0 <1.0 % LAB HEMETOLOGY METHOD 07/06/2025 5:47 PM EDT [facility] NRBC Absolute 0.00 <0.10 K/mcL LAB HEMETOLOGY METHOD 07/06/2025 5:47 PM EDT [facility] Neutrophils Relative 40.3 % LAB HEMETOLOGY METHOD 07/06/2025 5:47 PM EDT [facility] Lymphocytes Relative 47.5 % LAB [facility]OLOGY [facility] Monocytes Relative 8.6 % LAB HEMETOLOGY METHOD 07/06/2025 5:47 PM [facility] Eosinophils Relative 2.7 % LAB HEMETOLOGY METHOD 07/06/2025 5:47 PM T [facility] Basophils Relative 0.7 % LAB HEMETOLOGY [facility] Immature Granulocytes Relative 0.2 % LAB HEMETOLOGY METHOD 07/06/2025 5:47 PM [facility] Neutrophils Absolute 1.64 1.50 - 7.00 K/mcL LAB HEMETOLOGY METHOD 07/06/2025 5:47 PM EDT [facility] Lymphocytes Absolute 1.94 1.00 - 5.00 K/mcL LAB HEMETOLOGY METHOD 07/06/2025 5:47 PM EDT [facility] Monocytes Absolute 0.35 0.20 - 1.00 K/mcL LAB HEMETOLOGY METHOD 07/06/2025 5:47 PM [facility] Eosinophils Absolute 0.11 0.00 - 0.50 K/mcL LAB HEMETOLOGY METHOD 07/06/2025 5:47 PM EDT [facility] Basophils Absolute 0.03 0.00 - 0.20 K/[facility] LAB HEMETOLOGY METHOD 07/06/2025 5:47 PM EDT [facility] Immature Granulocytes Absolute 0.01 0.00 - 0.03 K/[facility] LAB HEMETOLOGY METHOD 07/06/2025 5:47 PM EDT [facility] Blood Venous blood specimen / Unknown Venipuncture / Unknown 07/06/2025 9:47 AM EDT 07/06/2025 9:47 AM EDT Karlos Marinelli SOFTWARE PRODUCT MANAGER LAB BLOOD ORDERABLES Final R esult Performing Organization Address City/[facility]/ZIP Co de Phone Number [facility] [address] [place] [address], [place] [phone] * Hemoglobin A1c (07/06/2025 9:47 AM EDT) Pathologist [facility] Hemoglobin A1C 5.3 <6.5 % LAB CHEMISTRY METHOD 07/07/2025 1:03 PM EDT [facility] Mean Bld Glu Estim. 105 mg/dL LAB CHEMISTRY METHOD 07/07/2025 1:03 PM EDT [facility] Blood Venous blood specimen / Unknown Venipuncture / Unknown 07/06/2025 9:47 AM EDT 07/06/2025 9:47 AM EDT Karlos Marinelli SOFTWARE PRODUCT MANAGER LAB BLOOD ORDERABLES Final R esult [facility] [address] [place] [address], [place] [phone] * Comprehensive metabolic panel (07/06/2025 9:47 AM EDT) Sodium 143 133 - 145 mmol/L LAB CHEMISTRY METHOD 07/06/2025 6:13 PM EDT [facility] Potassium 4.3 3.5 - 5.5 mmol/L LAB CHEMISTRY METHOD 07/06/2025 6:13 PM [facility] Chloride 108 96 - 110 mmol/L LAB CHEMISTRY METHOD 07/06/2025 6:13 PM [facility] CO2 30 21 - 32 mmol/L LAB CHEMISTRY METHOD 07/06/2025 6:13 PM [facility] Anion Gap 5 3 - 11 LAB CHEMISTRY METHOD 07/06/2025 6:13 PM [facility] Glucose 72 70 - 100 mg/dL LAB CHEMISTRY METHOD 07/06/2025 6:13 PM [facility] BUN 13 5 - 25 mg/dL LAB CHEMISTRY METHOD 07/06/2025 6:13 PM [facility] Creatinine 0.88 0.50 - 1.10 mg/dL LAB CHEMISTRY METHOD 07/06/2025 6:13 PM [facility] eGFR 76 >=60 mL/min/1. 73m2 LAB CHEMISTRY METHOD 07/06/2025 6:13 PM [facility] Comment:Calculation based on the Chronic Kidney Disease Epidemiology Collaboration (CKD-EPI) equation refit without adjustment for race. BUN/Creatinine Ratio 14.8 LAB CHEMISTRY METHOD 07/06/2025 6:13 PM [facility] Calcium 9.5 8.5 - 10.5 mg/dL LAB CHEMISTRY METHOD 07/06/2025 6:13 PM [facility] AST (SGOT) 17 10 - 42 unit/L LAB CHEMISTRY METHOD 07/06/2025 6:13 PM [facility] ALT (SGPT) 24 10 - 60 unit/L LAB CHEMISTRY METHOD 07/06/2025 6:13 PM [facility] Alkaline Phosphatase 55 42 - 121 unit/L LAB CHEMISTRY METHOD 07/06/2025 6:13 PM [facility] Total Protein 7.1 6.0 - 8.0 g/dL LAB CHEMISTRY METHOD 07/06/2025 6:13 PM EDT [facility] Albumin 4.0 3.2 - 5.0 g/dL LAB CHEMISTRY METHOD 07/06/2025 6:13 PM EDT [facility] Total Bilirubin 0.7 0.0 - 1.4 mg/dL LAB CHEMISTRY METHOD 07/06/2025 6:13 PM EDT [facility] Blood Venous blood specimen / Unknown Venipuncture / Unknown 07/06/2025 9:47 AM EDT 07/06/2025 9:47 AM EDT us Karlos Marinelli SOFTWARE PRODUCT MANAGER LAB BLOOD ORDERABLES Final R esult [facility] [address] [place] [address], [place] [phone] * MG Mammo Digital Screening w Kike bilat (09/20/2024 1:14 PM EST) Anatomical Region Laterality Modality Breast Bilateral Mammography 09/21/2024 9:07 AM EST Impressions 09/21/2024 9:19 AM EST 1. No mammographic evidence of malignancy 2. Scattered fibroglandular tissue BI-RADS CATEGORY: 2 - BENIGN RECOMMENDATION: Screening bilateral mammogram is recommended in 1 year. Mammo Location: [facility], [address] [place] [address], [id number], . -------- FINAL REPORT -------- Dictated By: Kayley Eid Dictated Date: 09/21/2024 09:07 ET Assigned Physician: Kayley Eid Reviewed and Electronically Signed By: Kayley Eid Signed Date: 09/21/2024 09:19 ET Workstation ID: [id number] Transcribed By: Self Edit Transcribed Date: 09/21/2024 [...] is recommended in 1 year. Mammo Location: [facility], [address] [place] [address], [facility], . -------- FINAL REPORT -------- Dictated By: Kayley Eid Dictated Date: 09/21/2024 09:07 ET Assigned Physician: Kayley Eid Reviewed and Electronically Signed By: Kayley Eid Signed Date: 09/21/2024 09:19 ET Workstation ID: [id number] Transcribed By: Self Edit Transcribed Date: 09/21/2024 09:07 ET us Vivian Xavier MD IMG BI PROCEDURES Final Result * Hm Hepatitis C Screening (06/09/2023) Hepatitis C Screening abstracted us Historical Provider HEALTH MAINTENANCE Final Result * Colonoscopy (11/09/2018) Colonoscopy no interpretation , abstracted Anatomical Region Laterality Modality Other us Historical Provider HEALTH MAINTENANCE Final Result from Last 3 Months or Most Recently Relevant to Health Maintenance Insurance [facility] Care Teams Lead Software Development Engineer Relationship Specialty Start Date End Date Vivian Xavier MD [address] [place] [address] PCP - General 09/29/22
[2025-08-17 12:49] LABS: MANUAL DIFF FLAG NO
[2025-08-17 12:51] LABS: Hematocrit 41.6 % (37.0-47.0); Hemoglobin 13.7 g/dl (12.0-16.0); Imm Gran Abs Auto 0.00 X10*3/uL (0.00-0.03); Imm Gran Pct Auto 0.0 % (0.0-0.4); Lymphocytes Absolute Auto 1.9 X10*3/uL (1.2-4.9); Mean Corpuscular HGB Conc 32.9 g/dl (31.0-35.0); Mean Corpuscular Hemoglobin 28.7 pg (27.0-33.0); Mean Corpuscular Volume 87.0 fL (80.0-98.0); NRBC Abs Auto 0.000 X10*3/uL (0.0-0.012); NRBC Pct Auto 0.0 /100WBC (0.0-0.2); Platelet Count 177 X10*3/uL (160-400); Red Blood Count 4.78 X10*6/uL (4.20-5.50); White Blood Count 3.9 X10*3/uL (4.8-10.8)
[2025-08-17 12:55] LABS: Appearance Urine Clear; Glucose Urine UA Negative (Negative); PH 6.5 (5.0-9.0); Specific Gravity - Urine <= 1.005 (1.005-1.025)
[2025-08-17 13:19] LABS: Alanine Aminotransferase 15 U/L (0-31); Albumin Level 4.5 g/dL (3.5-5.0); Alkaline Phosphatase 59 U/L (39-117); Anion Gap 13 (12-20); Aspartate Amino Transferase 25 U/L (5-31); Blood Urea Nitrogen 13 mg/dL (9-16); Calcium 9.8 mg/dL (8.4-10.2); Carbon Dioxide 25 mmol/L (22-29); Chloride 109 mmol/L (96-108); Estimated Glomerular Filt Rate 56; Potassium 4.0 mmol/L (3.3-5.1); Sodium 143 mmol/L (135-145); Total Protein 7.3 g/dL (6.5-8.0)
[2025-08-18 06:09] LABS: Hepatitis B Surface Ab Qnt <5 mIU/mL (> OR = 10)
[2025-08-19 04:48] LABS: Syphilis Screen Nonreactive (Nonreactive)
[2025-08-19 05:06] LABS: ~HepC Num1 0.09 S/CO (0.00-0.79); ~Hepatitis C Antibody Nonreactive (Nonreactive)
[2025-08-20 18:04] LABS: HIV RNA PCR Qn Copies 53 copies/mL (NOT DETECTED); HIV RNA PCR Qn Log Copies 1.72 (NOT DETECTED)
[2025-08-20 18:04] LABS: Absolute CD3 Count 1292 cells/uL (840-3060); Absolute CD8 Count 748 cells/uL (180-1170); Percent CD3 Cells 70 % (57-85); Percent CD8 Cells 40 % (12-42)
== END 2025-08-17 11:54 | disposition home or self-care (01) ==
LOC: HO.HMGCLDS 11:53
PROVIDERS: Visit Provider Internal Medicine
DX: B20 Human immunodeficiency virus [HIV] disease (principal); Z11.59 Encounter for screening for other viral diseases; Z11.3 Encounter for screening for infections with a predominantly sexual mode of transmission
CPT/HCPCS: 36415; 80048; 80076; 81003; 85025; 86317; 86359; 86360; 86780; 86803; 87536

== ENCOUNTER 2025-08-19 09:27 | Outpatient (REF) | payer OTHER, SELFPAY ==
--- OUTSIDE RECORDS SUMMARY | 2025-08-19 11:12 | XMS_ITS | Clinical Summary ---
Author Organization [employer] Address [address] [facility] [address] [place] [address] Care Team Providers Care Fire Sprinkler Service Technician Name Role Phone Unavailable Primary Care Provider [...]
--- OUTSIDE RECORDS SUMMARY | 2025-08-19 11:12 | XMS_ITS | Clinical Summary ---
Author Organization [facility] [address] [place] [address] [place] [address] Phone Care Team Providers Care Dulite Machine Bluer Name Role Phone Vivian Xavier MD Primary Care Provider [phone] Allergies Active Allergy Reactions Criticality Noted Date Comments Minocycline Hcl 01/08/2008 Other Reaction(s): Hives/Urticaria Sulfamethoxazole-Trimethopri m 08/24/2006 Other Reaction(s): Hives/Urticaria Medications multivit-min/iron/ FA/vit K/lut ([employer] ORAL) OTC Active Active Problems Problem Noted Date Diagnosed Date Ascending aorta dilation ([facility] V24) Overview (01/07/2025): 3.8 cm COVID-19 09/05/2024 PMB (postmenopausal bleeding) 12/18/2020 Overview (09/05/2024): 11/2020 Pt is schf or ultrasund and EMB Obesity (BMI 30.0-34.9) 04/16/2019 Rosacea 01/07/2012 Disorder of kidney and ureter 08/24/2006 Overview (09/05/2024): IMO update External hemorrhoids 08/24/2006 Overview (09/05/2024): IMO update Human immunodeficiency virus (HIV) disease (CMS/HCC V24, [facility] V28) 08/24/2006 Overview (08/13/2025): Needs Pap smear and HPV testing every three years throughout lifetime Pneumocystosis ([facility] V24, [facility] V28) 2005 Encounters Date Type Department Care Team Description 08/19/2025 Results Follow-Up Obstetrics and Gynecology - [address] [phone] Nel Nava CNM 08/13/2025 10:00 AM EST Office Visit Obstetrics and Gynecology - [address] [phone] Nel Nava CNM Encounter for gynecological examination without abnormal finding (Primary Dx); Human immunodeficiency virus (HIV) disease ([facility] V24, [facility] V28) 07/08/2025 Results Follow-Up Adult [address] [phone] Karlos Marinelli, DAMARIS 07/06/2025 9:45 AM EDT Clinic Lab Collection [facility] [address] [phone] Annual physical exam; Encounter for screening for cardiovascular disorders 07/04/[address] [phone] Vivian Xavier MD 07/03/2025 4:30 PM EDT Office Visit [address] [phone] Karlos Marinelli, MANAGER TRANSPORTATION Annual physical exam (Primary Dx); Encounter for screening for cardiovascular disorders 06/18/2025 Telephone Adult [address] [phone] Vivian Xavier MD from Last 3 Months [...] Date Comments Human immunodeficiency virus (HIV) disease ([facility] V24, [facility] V28) 08/24/2006 DX:Human immunodefi ciency virus (HIV) disease ([facility]) Unspecified disorder of kidn ey and ureter 08/24/2006 DX:Unspecified disorder of k idney and ureter Pneumocystosis ([facility] V24, [facility] V28) 08/24/2006 DX:Pneumocystosis ([facility]) Endometriosis DX:Endometriosis Covid-19 02/2020 DX:COVID-19 History of [...] for your loved ones. For example, child attendant or elderly care for an older adult? [...] 10:40 AM EST Appointment Radiology Department - [address] [phone] 10/15/2025 11:00 AM EST Office Visit Adult Medicine [address] [phone] Vivian Xavier MD [address] [place] [address] Health Maintenance Due Date Last Done Comments [...] AM EST Human immunodeficiency virus (HIV) disease ([facility] V24, [facility] V28) Encounter for gynecological examination without abnormal finding HPV WITH REFLEX GENOTYPE Routine 08/13/2025 10:35 AM EST Human immunodeficiency virus (HIV) disease ([facility]/HCC V24, [facility] V28) Encounter for gynecological examination without abnormal [...] LAB MICROBIOLOGY METHOD 08/14/2025 1:49 PM EST [facility] ([facility] Broom Cervix uteri structure / Unknown 08/13/2025 10:35 AM EST 08/14/2025 6:17 AM EST Nel Nava [facility] MOLECULAR DIAGNOSTICS O RDERABLES Final Result Performing Organization Address City/[facility]/ZIP Co de Phone Number [facility] [address] [place] [address], [place] [phone] * Pap Smear (08/13/2025 10:35 AM EST) Interpretation Negative for intraepithelial lesion or malignancy 08/16/2025 3:[address] [facility] at 1531 EST General Categorization Negative 08/16/2025 3:[address] [facility] Specimen Adequacy Satisfactory for evaluation, endocervical/culver sformation zone component present 08/16/2025 3:[address] [facility] Pap Methodology Liquid Based Pap Test 08/16/2025 3:[address] [facility] Disclaimer The Pap test is a screening test which carries an inherent false negative rate. These test results should be correlated with the patient's clinical findings and history. This Pap test was processed using an automated screening system. Technical cytopathology services provided by [facility], at [address] [place] [id number] (CLIA # [id number]/Diann Hussein MD, Typing Element Machine Operator.) 08/16/2025 3:[address] [facility] Console Pap Interpretation Reported 08/16/2025 3:[address] [facility] Broom Cervix uteri structure / Unknown 08/13/2025 10:35 AM EST 08/13/2025 10:35 AM EST Nel Nava [facility] CYTOLOGY ORDERABLES Fin al Result Performing Organization Address City/[facility]/ZIP Co de Phone Number [facility] [address] [place] [address], [place] [phone] * Thyroid stimulating hormone with reflex to free t4 and free t3 (07/06/2025 9:47 AM EDT) TSH 1.55 0.40 - 4.00 mcIU/mL LAB CHEMISTRY METHOD 07/06/2025 6:56 PM EDT [facility] Blood Venous blood specimen / Unknown Venipuncture / Unknown 07/06/2025 9:47 AM EDT 07/06/2025 9:47 AM EDT us Karlos Marinelli MANAGER TRANSPORTATION LAB BLOOD ORDERABLES Final R esult [facility] [address] [place] [address], * (ABNORMAL) Lipid panel with reflex to direct LDL (07/06/2025 9:47 AM EDT) Pathologist [facility] Cholesterol 192 0 - 200 mg/dL LAB CHEMISTRY METHOD 07/06/2025 6:11 PM EDT [facility] Triglycerides 64 0 - 150 mg/dL LAB CHEMISTRY METHOD 07/06/2025 6:11 PM [facility] HDL 74 >=40 mg/dL LAB CHEMISTRY METHOD 07/06/2025 6:11 PM [facility] LDL Calculated 105(H) 0 - 100 mg/dL LAB CHEMISTRY METHOD 07/06/2025 6:11 PM [facility] Comment:Estimated LDL Calcul ated using equation: Total cholesterol - HDL cholesterol - (Triglycerides/5) VLDL Cholesterol Conner 12.8 mg/dL LAB CHEMISTRY METHOD 07/06/2025 6:11 PM T [facility] Non HDL Chol. (LDL+VLDL) 118 <145 mg/dL LAB CHEMISTRY METHOD 07/06/2025 6:11 PM [facility] Chol/HDL Ratio 2.6 0.0 - 4.4 LAB CHEMISTRY METHOD 07/06/2025 6:11 PM EDT [facility] Blood Venous blood specimen / Unknown Venipuncture / Unknown 07/06/2025 9:47 AM EDT 07/06/2025 9:47 AM EDT Karlos Marinelli MANAGER TRANSPORTATION LAB BLOOD ORDERABLES Final R esult [facility] [address] [place] [address], * (ABNORMAL) CBC auto differential (07/06/2025 9:47 AM EDT) WBC 4.1(L) 4.8 - 10.8 K/mcL LAB HEMETOLOGY METHOD 07/06/2025 5:47 PM EDT [facility] RBC 4.90(H) 3.80 - 4.80 M/mcL LAB HEMETOLOGY METHOD 07/06/2025 5:47 PM EDT [facility] Hemoglobin 13.9 11.5 - 16.0 g/dL LAB HEMETOLOGY METHOD 07/06/2025 5:47 PM EDT [facility] Hematocrit 43.3 35.0 - 47.0 % LAB HEMETOLOGY METHOD 07/06/2025 5:47 PM EDT [facility] MCV 89.1 79.0 - 98.0 FL LAB HEMETOLOGY METHOD 07/06/2025 5:47 PM EDT [facility] MCH 28.6 27.0 - 32.0 pcg LAB HEMETOLOGY METHOD 07/06/2025 5:47 PM EDT [facility] MCHC 32.1 32.0 - 37.0 g/dL LAB HEMETOLOGY METHOD 07/06/2025 5:47 PM EDT [facility] RDW 13.7 11.0 - 15.0 % LAB HEMETOLOGY METHOD 07/06/2025 5:47 PM EDT [facility] Platelets 175 130 - 400 K/mcL LAB HEMETOLOGY METHOD 07/06/2025 5:47 PM EDT [facility] MPV 9.8 7.0 - 11.0 FL LAB HEMETOLOGY METHOD 07/06/2025 5:47 PM EDT [facility] NRBC 0.0 <1.0 % LAB HEMETOLOGY METHOD 07/06/2025 5:47 PM EDT [facility] NRBC Absolute 0.00 <0.10 K/mcL LAB HEMETOLOGY METHOD 07/06/2025 5:47 PM EDT [facility] Neutrophils Relative 40.3 % LAB HEMETOLOGY METHOD 07/06/2025 5:47 PM EDT [facility] Lymphocytes Relative 47.5 % LAB HEMETOLOGY METHOD 07/06/2025 5:47 PM EDT [facility] Monocytes Relative 8.6 % LAB HEMETOLOGY METHOD 07/06/2025 5:47 PM EDT [facility] Eosinophils Relative 2.7 % LAB HEMETOLOGY METHOD 07/06/2025 5:47 [facility] Basophils Relative 0.7 % LAB HEMETOLOGY METHOD 07/06/2025 5:47 PM [facility] Immature Granulocytes Relative 0.2 % LAB HEMETOLOGY METHOD 07/06/2025 5:47 PM EDT [facility] Neutrophils Absolute 1.64 1.50 - 7.00 K/mcL LAB HEMETOLOGY METHOD 07/06/2025 5:47 PM EDT [facility] Lymphocytes Absolute 1.94 1.00 - 5.00 K/mcL LAB HEMETOLOGY METHOD 07/06/2025 5:47 PM EDT [facility] Monocytes Absolute 0.35 0.20 - 1.00 K/mcL LAB HEMETOLOGY METHOD 07/06/2025 5:47 PM EDT [facility] Eosinophils Absolute 0.11 0.00 - 0.50 K/mcL LAB HEMETOLOGY METHOD 07/06/2025 5:47 PM EDT [facility] Basophils Absolute 0.03 0.00 - 0.20 K/mcL LAB HEMETOLOGY METHOD 07/06/2025 5:47 PM EDT [facility] Immature Granulocytes Absolute 0.01 0.00 - 0.03 K/[facility] LAB HEMETOLOGY METHOD 07/06/2025 5:47 PM EDT [facility] Blood Venous blood specimen / Unknown Venipuncture / Unknown 07/06/2025 9:47 AM EDT 07/06/2025 9:47 AM EDT Karlos Marinelli MANAGER TRANSPORTATION LAB BLOOD ORDERABLES Final R esult [facility] [address] [place] [address], [place] [phone] * Hemoglobin A1c (07/06/2025 9:47 AM EDT) Hemoglobin A1C 5.3 <6.5 % LAB CHEMISTRY METHOD 07/07/2025 1:03 PM EDT [facility] Mean Bld Glu Estim. 105 mg/dL LAB CHEMISTRY METHOD 07/07/2025 1:03 PM EDT [facility] Blood Venous blood specimen / Unknown Venipuncture / Unknown 07/06/2025 9:47 AM EDT 07/06/2025 9:47 AM EDT Karlos Marinelli MANAGER TRANSPORTATION LAB BLOOD ORDERABLES Final R esult [facility] [address] [place] [address], [place] [phone] * Comprehensive metabolic panel (07/06/2025 9:47 AM EDT) Sodium 143 133 - 145 mmol/L LAB CHEMISTRY METHOD 07/06/2025 6:13 PM [facility] Potassium 4.3 3.5 - 5.5 mmol/L LAB CHEMISTRY METHOD 07/06/2025 6:13 PM [facility] Chloride 108 96 - 110 mmol/L LAB CHEMISTRY METHOD 07/06/2025 6:13 PM [facility] CO2 30 21 - 32 mmol/L LAB CHEMISTRY METHOD 07/06/2025 6:13 PM [facility] Anion Gap 5 3 - 11 LAB CHEMISTRY METHOD 07/06/2025 6:13 PM [facility] Glucose 72 70 - 100 mg/dL LAB CHEMISTRY METHOD 07/06/2025 6:13 PM [facility] BUN 13 5 - 25 mg/dL LAB CHEMISTRY METHOD 07/06/2025 6:13 PM [facility] Creatinine 0.88 0.50 - 1.10 mg/dL LAB CHEMISTRY METHOD 07/06/2025 6:13 PM [facility] eGFR 76 >=60 mL/min/1. 73m2 LAB CHEMISTRY METHOD 07/06/2025 6:13 PM [facility] Comment:Calculation based on the Chronic Kidney Disease Epidemiology Collaboration (CKD-EPI) equation refit without adjustment for race. BUN/Creatinine Ratio 14.8 LAB CHEMISTRY METHOD 07/06/2025 6:13 PM [facility] Calcium 9.5 8.5 - 10.5 mg/dL LAB CHEMISTRY METHOD 07/06/2025 6:13 PM [facility] AST (SGOT) 17 10 - 42 unit/L LAB CHEMISTRY METHOD 07/06/2025 6:13 PM [facility] ALT (SGPT) 24 10 - 60 unit/L LAB CHEMISTRY METHOD 07/06/2025 6:13 PM [facility] Alkaline Phosphatase 55 42 - 121 unit/L LAB CHEMISTRY METHOD 07/06/2025 6:13 PM EDT [facility] Total Protein 7.1 6.0 - 8.0 g/dL LAB CHEMISTRY METHOD 07/06/2025 6:13 PM EDT [facility] Albumin 4.0 3.2 - 5.0 g/dL LAB CHEMISTRY METHOD 07/06/2025 6:13 PM EDT [facility] Total Bilirubin 0.7 0.0 - 1.4 mg/dL LAB CHEMISTRY METHOD 07/06/2025 6:13 PM EDT [facility] Blood Venous blood specimen / Unknown Venipuncture / Unknown 07/06/2025 9:47 AM EDT 07/06/2025 9:47 AM EDT Karlos Marinelli MANAGER TRANSPORTATION LAB BLOOD ORDERABLES Final R esult [facility] [address] [place] [address], [place] [phone] * MG Mammo Digital Screening w Kike bilat (09/20/2024 1:14 PM EST) Anatomical Region Laterality Modality Breast Bilateral Mammography 09/21/2024 9:07 AM EST Impressions 09/21/2024 9:19 AM EST 1. No mammographic evidence of malignancy 2. Scattered fibroglandular tissue BI-RADS CATEGORY: 2 - BENIGN RECOMMENDATION: Screening bilateral mammogram is recommended in 1 year. Mammo Location: [facility], [address] [place] [address], [phone], . -------- FINAL REPORT -------- Dictated By: Kayley Eid Dictated Date: 09/21/2024 09:07 ET Assigned Physician: Kayley Eid Reviewed and Electronically Signed By: Kayley Eid Signed Date: 09/21/2024 09:19 ET Workstation ID: [id number] Transcribed By: Self Edit Transcribed Date: 09/21/2024 [...] is recommended in 1 year. Mammo Location: [facility], [address] [place] [address], [phone], . -------- FINAL REPORT -------- Dictated By: Kayley Eid Dictated Date: 09/21/2024 09:07 ET Assigned Physician: Kayley Eid Reviewed and Electronically Signed By: Kayley Eid Signed Date: 09/21/2024 09:19 ET Workstation ID: [id number] Transcribed By: Self Edit Transcribed Date: 09/21/2024 09:07 ET Vivian Xavier MD IMG BI PROCEDURES Final Result * Hepatitis C Screening (06/09/2023) Hepatitis C Screening abstracted Historical Provider HEALTH MAINTENANCE Final Result * Colonoscopy (11/09/2018) Colonoscopy no interpretation , abstracted Anatomical Region Laterality Modality Other Historical Provider HEALTH MAINTENANCE Final Result from Last 3 Months or Most Recently Relevant to Health Maintenance Insurance [employer] Care Teams Dulite Machine Bluer Relationship Specialty Start Date End Date Vivian Xavier MD [address] [place] [phone] PCP - General 09/29/22
--- OUTSIDE RECORDS SUMMARY | 2025-08-19 11:12 | XMS_ITS | Encounter Summary ---
Author Organization [facility] Address [address] [place] [address] Care Team Providers Care Supervisor Education Name Role Phone Vivian Xavier MD Primary Care Provider [phone] Encounter Details Date Type Department Care Team ([facility] st Contact Info) Description 07/08/2025 Results Follow-Up Adult Medicine [facility] [address] [place], [place] [phone] Karlos Marinelli, BREAST SURGEON [address] [place], [place] Social History Tobacco Use Types Packs/Day [...] for your loved ones. For example, child care teacher or elderly care for an older adult? [...] 10:40 AM EST Appointment Radiology Department - [address] [phone] 10/15/2025 11:00 AM EST Office Visit Adult Medicine [place] [address] [phone] Vivina Xavier MD [address] [place] [address] documented as of this encounter Visit Diagnoses Not on filedocumented in this encounter Additional Health Concerns Assessment Noted Time PHQ-9 Depression Total Score: 0 07/03/20 25 4:17 PM EDT documented as of this encounter Care Teams Supervisor Education Relationship Specialty Start Date End Date Vivian Xavier MD [address] [place] [address] PCP - General 09/29/22 documented as of this encounter
[2025-08-22 11:48] LABS: TS Negative Control Passed; TS Panel A 0; TS Panel B 0; TS Positive Control Passed; TSpotTB Negative (Negative)
== END 2025-08-19 09:28 | disposition home or self-care (01) ==
LOC: HO.HMGCLDS 09:27
PROVIDERS: Visit Provider Internal Medicine
DX: B20 Human immunodeficiency virus [HIV] disease (principal); Z11.1 Encounter for screening for respiratory tuberculosis
CPT/HCPCS: 36415; 86481

== ENCOUNTER 2025-08-26 11:10 | Outpatient (AMB) | payer OTHER, SELFPAY ==
[2025-08-26 11:25] VITALS: BP 122/72; PULSE 90; O2SAT 98
--- NOTE | 2025-08-26 11:25 | MHC.OFFVIS ---
Vital Signs 08/26/25 11:25 BP 122/72 Pulse 90 Pulse Oximetry (%) 98 Intake Visit Reasons: HIV 6 month check Allergies doxycycline Allergy (Unknown, Verified 08/26/25 11:26) itchiness minocycline (MINOCYCLINE) Allergy (Unknown, Verified 08/26/25 11:26) HIVES Sulfa (Sulfonamide Antibiotics) Allergy (Unknown, Verified 08/26/25 11:26) hives sulfamethoxazole (From BACTRIM) Allergy (Unknown, Verified 08/26/25 11:26) HIVES trimethoprim (From BACTRIM) Allergy (Unknown, Verified 08/26/25 11:26) HIVES BACTRIM Allergy (Unknown, Uncoded 08/26/25 11:) HIVES DOXYCYCLINE Allergy (Unknown, Uncoded 08/26/25 11:) ITCGINESS HPI Comments Details: History of Present Illness The patient is a 59 year old female presenting for a follow-up visit for Human Immunodeficiency Virus (HIV) care. She is managed on Odefsey, which she occasionally misses taking. Her viral load is 53 and CD4 count is 605. She has expressed interest in potentially using Cabanuva in the future. Results - Labs: - Viral load: 53 - CD4 count: 605 - Kidney function: Unremarkable - Liver function: Unremarkable [facility] Medical History Bone disorder Blood creatinine increased compared with prior measurement HIV (human immunodeficiency virus infection) Family History Mother HTN (hypertension) Social History Household Members: None Housing: Apartment Alcohol intake: never Patient Tobacco Use Status: Never used Tobacco Review of Systems Narrative Review of Systems Physical Exam Exam Exam: Physical Exam - Vital Signs: Stable. - HEENT: Oropharynx is clear. - Lungs: Clear. - Cardiovascular: Heart rate and rhythm are regular. - Abdomen: Soft and non-tender. - Extremities: Non-tender. Vital Signs: Last Vital Signs Pulse 90 08/26/25 11:25 BP 122/72 08/26/25 11:25 Pulse Ox 98 08/26/25 11:25 Assessment & Plan Assessment & Plan (1) HIV (human immunodeficiency virus infection): Comment: She is doing well She reports being up to date on health care maintenance. She has no concerns. She is viral load slightly elevated at 63,has forgot med. Code(s): B20 - Human immunodeficiency virus [HIV] disease Category: Medical Plan Plan Patient was informed and verbally consented to the use of an ambient scribe for clinic note documentation during this visit. 1. Human immunodeficiency virus, type 2 [HIV 2] as the cause of diseases classified elsewhere B97.35 The patient is doing well with her HIV care. Her Odefsey prescription was renewed for 6 months. She will be seen back in 6 months for a follow-up, with a CD4 count and viral load to be checked prior to the visit. Discussion Notes I discussed with the patient that she is doing well with her HIV care. We will continue her current regimen of Odefsey, which has been renewed for 6 months. Her interest in Cabanuva as a future treatment option was noted. A follow-up appointment is scheduled in 6 months, and I have ordered a repeat CD4 count and viral load to be performed before that visit. Medical Decision Making The patient is a 59-year-old female here for a routine follow-up for her HIV. She is stable with a CD4 count of 605 and a low viral load of 53, despite reporting occasional non-adherence to her Odefsey. Her physical examination and labs, including kidney and liver function, are unremarkable. Given her stability, the plan is to continue her current treatment regimen and monitor with repeat labs and a follow-up visit in 6 months. Patient Instructions - Continue taking your Odefsey medication regularly. - We have renewed your prescription for 6 months. - Please have your bloodwork (CD4 count and viral load) done before your next appointment. - You have a follow-up visit scheduled in 6 months. Orders: Orders HIV-1 RNA QN PCR Expanded 6 Months B20 - Human immunodeficiency virus [HIV] disease Complete Blood Count Auto Diff 6 Months B20 - Human immunodeficiency virus [HIV] disease Basic Metabolic Panel 6 Months B20 - Human immunodeficiency virus [HIV] disease Liver Panel 6 Months B20 - Human immunodeficiency virus [HIV] disease Lymphocyte Subset Panel 3 6 Months B20 - Human immunodeficiency virus [HIV] disease Medications: Refilled [id number]-pergdp ala 200-25-25 mg (Odefsey) must administer with a meal/food 1 tab PO DAILY 90 tabs 1RF 90 days Coding Level of Care Code Est Pt Level 4 (60240) Diagnoses HIV (human immunodeficiency virus infection) B20
== END 2025-08-26 11:40 | disposition home or self-care (01) ==
LOC: HO.HID 11:10
PROVIDERS: Visit Provider Internal Medicine
DX: B20 Human immunodeficiency virus [HIV] disease (principal)
CPT/HCPCS: 99214

== ENCOUNTER → 2025-08-26 11:10 | Outpatient (BNVA) | payer OTHER, SELFPAY | PROVIDERS: Visit Provider Internal Medicine | DX: B20 Human immunodeficiency virus [HIV] disease (principal); Z79.899 Other long term (current) drug therapy | CPT/HCPCS: 99212 ==